=== PATIENT | male | born 1940 | race Caucasian/White ===

== ENCOUNTER 2016-02-17 08:59 | Outpatient (CLI) | payer MEDICARE ==
[~2016-02-17] VITALS: Ht 185.4 cm; Wt 107.7 kg
[~2016-02-17 08:59] MED LIST: AMBIEN10 MG PO; ATROVENT 0.02%2.5 ML UPD; AUGMENTIN 500-11 TA1 PO; BAYER CHEWABLE81 MG PO; BENADRYL25 MG PO; BENZONATATE200 MG PO; BETAPACE 120 M120 MG PO; BETAPACE 80 MG80 MG PO; BROVANA15 MCG/2 M INH; BUMEX 1 MG TAB1 MG PO; CARAFATE1 G/10 ML PO; CHRONULAC30 ML PO; CLARITIN 10 MG10 MG PO; COLACE100 MG PO; COREG12.5 MG PO; COREG25 MG PO; COUMADIN4 MG PO; COUMADIN5 MG PO; CRESTOR10 MG PO; Chloraseptic Spray [BKC] TOPICAL; DIOVAN HCT 320/1 TA2 PO; DIOVAN320 MG PO; DOCUSATE S50 MG/5 ML; ENTRESTO PO; FAMVIR500 MG PO; FLAGYL500 MG PO; FLORANEX / LACT1 TAB PO; FLUTICASONE PRO16 GM NASAL; FUROSEMIDE20 MG PO; HYDROCODONE-APA1 TAB PO; K-DUR20 MEQ PO; K-TAB10 MEQ PO; KLOR-CON 1010 MEQ PO; LASIX INJ40 MG/4 ML IV; LASIX20 MG PO; LASIX40 MG PO; LASIX80 MG PO; LEVAQUIN750 MG PO; LEVOXYL125 MCG PO; MAGNESIUM; MAGNESIUM OXID500 MG PO; METOPROLOL TART50 MG PO; MINOCIN100 MG PO; MIRALAX17 GM PO; MUCINEX DM ER1 EAC1 PO; NEURONTIN 300300 MG PO; NEXIUM40 MG PO; NYSTATIN ORAL SU5 ML PO; PEPCID20 MG PO; PERCOCET 10/3251 TA1 PO; PLAVIX75 MG PO; PROSCAR5 MG PO; PROSTATE MEDS; PROVENTIL HFA6.7 GM INH; PULMICORT0.5 MG/21 UPD; SINGULAIR10 MG PO; SOLU-MEDRO40 MG/1 M1 IV; SPIRIVA18 MCG INH; STOOL SOFTENER250 MG PO; SYMBICORT 16010.2 GM INH; SYNTHROID125 MCG PO; XANAX1 MG PO; XOPENEX 1.1.25 MG/3 UPD; ZANTAC300 MG PO
[2016-02-17 10:37] VITALS: BP 86/53; Ht 185.4 cm; Wt 107.7 kg
--- NOTE | 2016-02-17 10:44 | NUR ---
0930 ARRIVED FOR DOBUTREX AND BUMEX DRIP. RESP EVEN AND NONLABORED. V/S TAKEN EXPLAINED REASON OF DRIPS AND HAS OWN HOME MEDS TO TAKE. ALSO EXPLAINED HAS TO MONITOR URINE OUTPUT AND VERBALLY UNDERSTANDS.
--- NOTE | 2016-02-17 10:46 | NUR ---
1020 ON TELEMETRY [place] HR 65. ON MONITOR. IV STARTED BY SOL ONEAL R.N. LEFT HAND 2 ATTEMPTS 22 GAUGE GOOD BLOOD RETURN. DOBUTREX GTT STRATED AT 5 MCG/KG/MIN AND BUMEX DRIP AT 1MG HR.REPORT TO SOCO SURESH R.N.
[2016-02-17 10:51] LABS: ANION GAP 13.2 mmol/L (8-16); CARBON DIOXIDE 28.6 mmol/L (21.0-32.0); CREATININE - SERUM 1.4 mg/dL (0.6-1.3); POTASSIUM - SERUM 3.8 mmol/L (3.5-5.1)
--- NOTE | 2016-02-17 11:09 | NUR ---
RECEIVED CARE. IN ISOLATION FOR FLU VIRUS. DOBUTREX DRIP AND BUMEX DRIP INFUSING ORDERED, NO SIGNS OF INFILTRATION. AT BEDSIDE. COUGH NOTED.
--- NOTE | 2016-02-17 12:30 | NUR ---
LUNCH SERVED. DENIES NEEDS.
--- NOTE | 2016-02-17 14:00 | NUR ---
HAS VOIDED CLEAR YELLOW URINE. RESPIRATIONS WITHOUT DISTRESS. VITAL SIGNS STABLE, SEE VITAL SIGN SHEET.
--- NOTE | 2016-02-17 15:57 | NUR ---
STATES FEELS BETTER. RESPIRATIONS WITHOUT DISTRESS.
--- NOTE | 2016-02-17 16:31 | NUR ---
ROOM CHECK. RESPIRATIONS WITHOUT DISTRESS. SMILING. AT BEDSIDE.
--- NOTE | 2016-02-17 18:20 | NUR ---
IV DRIPS TURNED OFF.
--- NOTE | 2016-02-17 19:01 | NUR ---
DISCHARGE INSTRUCTIONS GIVEN, VOICED UNDERSTANDING. IV DISCONTINUED INTACT. WEIGHT IS 237. GETTING DRESSED FOR DISCHARGE.
--- NOTE | 2016-02-17 19:12 | NUR ---
DISCHARGED HOME VIA WC
== END 2016-02-17 19:12 | disposition home or self-care (01) ==
LOC: D.OPS 08:59
PROVIDERS: Internal Medicine Interventional Cardiology
DX: I50.9 Heart failure, unspecified (principal); I42.9 Cardiomyopathy, unspecified

== ENCOUNTER → 2016-02-23 12:05 | Outpatient (CLI) | payer MEDICARE ==
[2016-02-17 10:37] VITALS: BMI 31.8
[2016-02-23 13:58] LABS: ERYTHROCYTE SEDIMENTATION RATE 11 mm/hr (0-20)
[2016-02-24 11:19] LABS: ANA REFLEX - DIRECT Negative (Negative)
== END | disposition home or self-care (01) ==
LOC: D.LAB 09:30
PROVIDERS: Internal Medicine Pulmonary Disease
DX: J44.9 Chronic obstructive pulmonary disease, unspecified (principal)

== ENCOUNTER 2016-03-31 08:43 | Outpatient (CLI) | payer MEDICARE ==
[~2016-03-31] VITALS: Ht 185.4 cm; Wt 114.5 kg
[2016-03-31 10:15] LABS: CREATINE KINASE 46 UL (21-232); UREA NITROGEN 16 mg/dL (7-18)
[2016-03-31 10:43] LABS: ANION GAP 15.4 mmol/L (8-16); CARBON DIOXIDE 26.4 mmol/L (21.0-32.0); CREATININE - SERUM 1.2 mg/dL (0.6-1.3); POTASSIUM - SERUM 3.8 mmol/L (3.5-5.1)
[2016-03-31 10:51] VITALS: BP 84/48; Ht 185.4 cm; Wt 114.5 kg
--- NOTE | 2016-03-31 10:55 | NUR ---
0950-STARTED PERIPHERAL IV TO LEFT HAND TIMES TWO ATTEMPTS WITH 22G CATHETER. INFUSIONS PER PUMP AND SETTINGS INITIATED AT THIS TIME. 1055-REPORTED OFF TO HANNAH BENITEZ RN, TRANSFER OF CARE AT THIS TIME.
--- NOTE | 2016-03-31 18:47 | NUR ---
1200, RECEIVED PT, IV INFUSING , TELEMETRY ON , UP TO BAHROOM TOLERATED DIET 1500 NO CHANGE FAMILY AT BEDSIDE 1755 IV FINISH, IV DC WITH CATHER TIP INTACT TOTAL OUT PUT 4200CC, WT POST INFUSION 242.[address] BERG PAGE PER ORDER WAITING GUEST SPECIALIST BACK
== END 2016-03-31 19:21 | disposition home or self-care (01) ==
LOC: D.OPS 08:43
PROVIDERS: Internal Medicine Interventional Cardiology
DX: I50.9 Heart failure, unspecified (principal); I42.9 Cardiomyopathy, unspecified

== ENCOUNTER 2016-05-23 07:03 | Outpatient (CLI) | payer MEDICARE ==
[~2016-05-23] VITALS: Ht 185.4 cm; Wt 113.7 kg
[2016-05-23 07:36] VITALS: BP 132/71; Ht 185.4 cm; Wt 113.7 kg
[2016-05-23] MEDS ORDERED: K-TAB10 MEQ PO ×2 (07:44)
[2016-05-23] MEDS ORDERED: FUROSEMIDE20 MG PO (07:47)
[2016-05-23] MEDS ORDERED: NEXIUM40 MG PO (07:48)
[2016-05-23] MEDS ORDERED: ZANTAC150 MG PO (07:49)
[2016-05-23] MEDS ORDERED: PROSCAR5 MG PO (07:50)
[2016-05-23] MEDS ORDERED: SINGULAIR10 MG PO (07:51)
[2016-05-23] MEDS ORDERED: MINOCIN100 MG PO (07:52)
[2016-05-23] MEDS ORDERED: KLONOPIN1 MG PO (07:54)
[2016-05-23] MEDS ORDERED: COUMADIN5 MG PO (07:55)
[2016-05-23 08:16] LABS: POTASSIUM - SERUM 3.4 mmol/L (3.5-5.1)
[2016-05-23 08:25] LABS: ANION GAP 11.1 mmol/L (8-16); CARBON DIOXIDE 30.3 mmol/L (21.0-32.0); CREATININE - SERUM 1.2 mg/dL (0.6-1.3)
--- NOTE | 2016-05-23 09:38 | NUR ---
0939 RECEIVED PATIENT FROM SABINA NORTON RN. PATIENT RESTING, SITTING UP IN BED. ROOM AIR WITH NO RESP DISTRESS. NSR RATE 68 W NO C/O CHEST PAIN. PULSES PALP X 4. PIV TO R HAND WITH DOBUTREX AND BUMEX GTT INFUSING ORDERED. AT BEDSIDE.
--- NOTE | 2016-05-23 15:01 | NUR ---
1030 GTT CONTINUES, ALL VITALS REMAIN WNL. PIV TO R HAND REMAINS C/D/I. VOIDING VIA URINAL. AT SIDE. 1115 SITTING UP AT BEDSIDE EATING TURKEY SANDWICH, DENIES NEEDS AT THIS TIME. 1330 RESTING WITH EYES CLOSED. ALL VITALS WNL 1500 CONTINUES TO VOID VIA URINAL. ALL VITALS WNL. AT SIDE.
--- NOTE | 2016-05-23 16:17 | NUR ---
1600 PIV REMOVED FROM LEFT HAND WITH PAPER TAPE APPLIED. UP TO BEDSIDE TO VOID. WEIGHED AT BEDSIDE SCALES 242.8LBS. D/C INSTRUCTIONS DISCUSSED WITH PATIENT AND AT BEDSIDE.
--- NOTE | 2016-05-23 16:22 | NUR ---
3800 CC URINE VOIDED VIA URINAL FOR TOTAL DAY.
== END 2016-05-23 16:25 | disposition home or self-care (01) ==
LOC: D.CATH 07:03
PROVIDERS: Internal Medicine Interventional Cardiology
DX: I50.9 Heart failure, unspecified (principal); I42.9 Cardiomyopathy, unspecified

== ENCOUNTER → 2016-08-21 09:22 | Outpatient (CLI) | payer MEDICARE ==
[2016-05-23 07:36] VITALS: BMI 33.0
[~2016-08-21 09:22] MED LIST changes: +KLONOPIN1 MG PO; +ZANTAC150 MG PO
== END | disposition home or self-care (01) ==
LOC: D.RT 09:22
DX: J44.9 Chronic obstructive pulmonary disease, unspecified (principal)

== ENCOUNTER → 2016-10-24 06:53 | Outpatient (CLI) | payer MEDICARE ==
--- NOTE | ~2016-10-24 | HEMODYNAMI ---
PATIENT:HOME SANTORO MEDICAL RECORD: [id number] : 42 LOCATION:[facility] ADMISSION DATE: 10/24/16 Generatedon:10/24/201612:46 Patient name: HOME SANTORO Patient #: [id number] SSN: : 1940 Date of study: 10/24/2016 Page: Of Hemodynamic Procedure Report Patient Data Patient Demographics Procedure consent was obtained First Name: HOME Gender: Male Last Name: MAUDE : 1940 [facility] Initial: STARLA Age: 75 year(s) Patient #: [id number] Race: Unknown Additional ID: [id number] Contact details Address: [address] State: [place] City: [place] Zip code: [address] Past Medical History Allergies: No known allergies Admission Admission Data Admission Date: 10/24/2016 Admission Time: 6:53 Lab Results Lab Result Date: 10/24/2016 Lab Result Time: 0:00 Biochemistry Name Units Result Min Max BUN mg/dl 21 --(----)-* 7 18 Creatinine mg/dl 1.2 --(---*)-- 0.6 1.3 CBC Name Units Result Min Max Hemoglobin g/dl 15.9 --(--*-)-- 13.5 17.5 Procedure Procedure Types Cath Procedure Diagnostic Procedure LHC LHC w/Coronaries w/Grafts PCI Procedure SVG-BMS/JELENA Initial Miscellaneous Procedures Moderate Sedation up to 45 minutes Procedure Description Procedure Date Procedure Date: 10/24/2016 Procedure Start Time: 12:14 Procedure End Time: 12:42 Procedure Staff Name Function Eladio Doran MD Performing Physician Janey Braswell RN Nurse Mingo Hoffman RN Atomic Process Engineer Rozina Adam RT Atomic Process Engineer Kamini Gallegos RT Scrub Procedure Data Cath Procedure Fluoroscopy Diagnostic fluoroscopy Total fluoroscopy Time: 7.9 time: 7.9 min min Diagnostic fluoroscopy Total fluoroscopy dose: dose: 1261 mGy 1261 mGy Contrast Material Contrast Material Type Amount (ml) Isovue 300 117 Entry Location Entry Primary Successful Side Size Upsize Upsize Entry Closure Succes sful Closure Location (Fr) 1 (Fr) 2 (Fr) Remarks Device Remarks Femoral Right 5 Fr 6 Fr Exoseal artery Short Estimated blood loss: 5 ml Diagnostic catheters Device Type Used For End Catheter Placement Cordis 5Fr JL 4.0 Left Coronary Catheter (MP) Angiography Cordis 5Fr 3DRC Catheter Right Coronary (MP) Angiography Diagnostic Infinity 5Fr Multi-vessel AR 2 MOD catheter Angiography Procedure Complications No complications Procedure Medications Medication Administration Route Dosage Oxygen NC 2 l/min Lidocaine 2% added to field 20 Heparin Flush Bag added to field 2 bags (1000units/500ml NS) 0.9% NaCl I.V. 100 ml/hr Bumex 10 Dobutamine I.V. drip 5 mcg/kg/min (500mg/250ml D5W) Fentanyl I.V. 50 mcg Versed I.V. 1 mg Versed I.V. 1 mg Fentanyl I.V. 50 mcg Versed I.V. 1 mg Fentanyl I.V. 50 mcg Heparin Bolus I.V. 4000 units Integrilin (Bolus I.V. 10.2 ml 2mg/ml) Nitroglycerin IC/IA I.C. 100 mcg Nitroglycerin IC/IA I.C. 100 mcg Cardene I.C. 300 mcg Nitroglycerin IC/IA I.C. 100 mcg Plavix P.O. 600 mg Hemodynamics Rest HGB: 15.9 (g/dl) Heart Rate: 66 (bpm) Snapshots Pre Cath Intra NCS Post Cath Vital Signs Time Heart Resp SPO2 NIBP (mmHg) Rhythm Pain Sedation Rate (ipm) (%) Status Level (bpm) 11:50:31 65 21 96 127/80(99) NSR 0 (11) 10(A) , No pain 11:54:45 68 22 98 136/79(110) NSR 0 (11) 10(A) , No pain 11:59:01 67 19 100 135/83(117) NSR 0 (11) 10(A) , No pain 12:03:15 68 16 97 121/78(100) NSR 0 (11) 10(A) , No pain 12:07:25 61 15 98 109/75(97) NSR 0 (11) 10(A) , No pain 12:11:32 65 16 98 113/74(91) NSR 0 (11) 10(A) , No pain 12:15:43 68 15 98 106/75(82) NSR 0 (11) 9(A) , No pain 12:19:52 65 17 97 102/66(80) NSR 0 (11) 9(A) , No pain 12:24:00 68 16 97 104/65(81) NSR 0 (11) 9(A) , No pain 12:28:08 66 14 96 104/69(77) NSR 0 (11) 9(A) , No pain 12:32:14 68 16 97 84/55(72) NSR 0 (11) 9(A) , No pain 12:36:15 68 15 96 93/65(77) NSR 0 (11) 9(A) , No pain 12:40:21 65 16 96 103/60(81) NSR 0 (11) 10(A) , No pain Medications Time Medication Route Dose Verified Delivered Reason Notes Effectiveness by by 11:59:42 Oxygen NC 2 l/min Eladio Buffie used for Andreea Braswell RN procedure 11:59:50 Lidocaine 2% added 20ml vial Eladio Hendricks for local to Andreea Doran MD anesthetic field 11:59:56 Heparin Flush added 2 bags Eladio Hendricks used for Bag to Andreea Doran MD procedure (1000units/500ml field NS) 12:00:06 0.9% NaCl I.V. 100 ml/hr Eladio Buffie Per physic charbel Andreea Braswell RN 12:08:51 Bumex IVPB 10mg/100ml@1mg/hr Eladio Buffie Per physic charbel continued Andreea Braswell RN 12:09:03 Dobutamine I.V. 5 mcg/kg/min Eladio Buffie Per physic charbel continued (500mg/250ml drip Andreea Braswell RN D5W) 12:11:20 Fentanyl I.V. 50 mcg Eladio Sifuentesie for sedati on Andreea Braswell RN 12:11:28 Versed I.V. 1 mg Eladio Sifuentesie for sedati on Andreea Braswell RN 12:15:29 Versed I.V. 1 mg Eladio Buffie for sedati on Andreea Braswell RN 12:15:33 Fentanyl I.V. 50 mcg Eladio Toth for sedati on Andreea Braswell RN 12:20:58 Versed I.V. 1 mg Eladio Sifuentesie for sedati on Andreea Braswell RN 12:21:01 Fentanyl I.V. 50 mcg Eladio Toth for sedati on Andreea Braswell RN 12:23:03 Heparin Bolus I.V. 4000 units Eladio Toth for verified Andreea Braswell RN anticoagulation with dr doran 12:24:20 Integrilin I.V. 10.2 ml Eladio Toth for wasted (Bolus 2mg/ml) Andreea Braswell RN antiplatelet 9.8 ml of therapy vial 12:27:47 Nitroglycerin I.C. 100 mcg Eladio Hendricks for IC/IA Andreea Doran MD vasodilation 12:29:23 Cardene I.C. 300 mcg Eladio Hendricks for Andreea Doran MD vasodilation 12:30:51 Nitroglycerin I.C. 100 mcg Eladio Hendricks for IC/IA Andreea Doran MD vasodilation 12:31:52 Nitroglycerin I.C. 100 mcg Eladio Hendricks for IC/IA Andreea Doran MD vasodilation 12:40:14 Plavix P.O. 600 mg Eladio Toth for Andreea Braswell RN antiplatelet therapy Procedure Log Time Note 11:35:25 Mingo Hoffman RN sent for patient. Start room use. 11:35:26 Time tracking: Regular hours 11:35:30 Plan of Care:Hemodynamics will remain stable., Cardiac rhythm will remain stable., Comfort level will be maintained., Respiratory function will remain adequate., Patient/ family verbilizes understanding of procedure., Procedure tolerated without complication., Recovers from procedure without complications.. 11:43:44 Patient received from Pre/Post Procedure Room to CCL 2 Alert and oriented. Tansferred to table in Supine position. 11:43:47 Warm blankets applied, and evelio hugger turned on for patient comfort. 11:43:48 Correct patient and procedure confirmed by team. 11:43:49 Signed procedure consent form obtained from patient. 11:43:49 ECG and BP/O2 sat monitors applied to patient. 11:43:50 Full Disclosure recording started 11:49:26 Vital chart was started 11:49:59 Kamini Counts RT(R) was relieved by Rozina Adam RT(R) as monitoring person 11:50:24 Baseline sample Acquired. 11:50:33 H&P Date Dictated: 10/24/2016 New H&P dictated by physician.. 11:50:34 Pre-procedure instructions explained to patient. 11:50:34 Pre-op teaching completed and patient verbalized understanding. 11:50:36 Family in waiting room. 11:50:37 Patient NPO since Midnight. 11:52:56 Is the patient allergic to Iodine/contrast media? No. 11:52:59 Was the patient premedicated? No 11:55:02 Is patient on blood thinner?No 11:55:19 Patient diabetic? No. 11:55:22 Previous problem with sedation/anesthesia? No ? 11:55:24 Snore? Yes 11:55:25 Sleep apnea? No 11:55:25 Deviated septum? No 11:55:26 Opens mouth fully? Yes 11:55:27 Sticks out tongue? Yes 11:55:28 Airway obstruction? Yes copd 11:55:32 Dentures? Yes out 11:56:06 Pre procedure: right dorsailis pedis pulse 2+ Normal; easily identifiable; not easily obliterated 11:56:08 Pre procedure: left dorsailis pedis pulse 2+ Normal; easily identifiable; not easily obliterated 11:56:10 Patient pain scale 0/10 ?. 11:56:20 IV patent on arrival in right forearm with 0.9% NaCl at O. 11:56:47 Lab Result : BUN 21 mg/dl 11:56:47 Lab Result : Creatinine 1.2 mg/dl 11:56:47 Lab Result : Hemoglobin 15.9 g/dl 11:56:50 Lab results completed and on chart. 11:56:53 Right groin area was prepped with chlora-prep and draped in sterile fashion 11:56:54 Alarms reviewed by R. N. 11:56:54 Sharps counted by scrub and verified by R.N. 11:57:05 Use device set Femoral Dx 11:57:06 Acist Syringe opened to sterile field. 11:57:06 Bag Decanter opened to sterile field. 11:57:07 Medline Cath Pack opened to sterile field. 11:57:07 Terumo 5Fr [place] Sheath opened to sterile field. 11:57:08 [place] 260cm J .035 wire opened to sterile field. 11:57:09 Acist Hand Control opened to sterile field. 11:57:09 Acist Manifold opened to sterile field. 11:57:09 Diagnostic Infinity 5Fr Multipack catheter opened to sterile field. 11:57:10 Tegaderm 4 x 4 opened to sterile field. 11:59:42 Oxygen 2 l/min NC was administered by Janey Braswell RN; used for procedure; 11:59:50 Lidocaine 2% 20ml vial added to field was administered by Eladio Doran MD; for local anesthetic; 11:59:56 Heparin Flush Bag (1000units/500ml NS) 2 bags added to field was administered by Eladio Doran MD; used for procedure; 12:00:06 0.9% NaCl 100 ml/hr I.V. was administered by Janey Braswell RN; Per physician; 12:01:47 Zero performed for pressure channel P1 12:02:36 Physician paged 12:08:51 Bumex 10mg/100ml@1mg/hr IVPB was administered by Janey Braswell RN; Per physician; continued 12:09:03 Dobutamine (500mg/250ml D5W) 5 mcg/kg/min I.V. drip was administered by Janey Braswell RN; Per physician; continued 12:10:46 Physician arrived 12:10:47 --------ALL STOP TIME OUT------ 12:10:47 Final Timeout: patient, procedure, and site verified with staff and physician. All members of the team are in agreement. 12:10:49 Right groin site verified by team. 12:10:52 Physical assessment completed. ASA score P 2 - A patient with mild systemic disease as per Eladio Doran MD. 12:10:55 Sedation plan: IV Moderate Sedation Versed, Fentanyl 12:11:12 Procedure started. 12:11:20 Fentanyl 50 mcg I.V. was administered by Janey Braswell RN; for sedation; 12:11:28 Versed 1 mg I.V. was administered by Janey Braswell RN; for sedation; 12:14:17 Local anesthetic to right femoral artery with Lidocaine 2% by Eladio Doran MD.INITIAL ACCESS ONLY 12:14:24 A 5 Fr sheath was inserted into the Right Femoral artery 12:15:29 Versed 1 mg I.V. was administered by Janey Braswell RN; for sedation; 12:15:33 Fentanyl 50 mcg I.V. was administered by Janey Braswell RN; for sedation; 12:16:39 A Cordis 5Fr JL 4.0 Catheter (MP) was advanced over the wire and used for Left Coronary Angiography. 12:17:15 LCA angiography performed. 12:17:19 Injector settings: Ml/sec: 3, Volume: 6, 12:17:46 Catheter removed. 12:17:53 A Cordis 5Fr 3DRC Catheter (MP) was advanced over the wire and used for Right Coronary Angiography. 12:19:06 EASTMAN angiography performed. 12:19:11 Injector settings: Ml/sec: 3, Volume: 6, 12:19:37 PhotoFix UKisper J 300cm 0.014 guide wire opened to sterile field. 12:19:37 Merit BasixCompak Inflation Kit opened to sterile field. 12:19:38 Terumo 6Fr [place] Sheath opened to sterile field. 12:20:00 A Diagnostic Infinity 5Fr AR 2 MOD catheter was advanced over the wire and used for Multi-vessel Angiography. 12:20:44 SVG to RCA angiography performed. 12:20:58 Versed 1 mg I.V. was administered by Janey Braswell RN; for sedation; 12:21:01 Fentanyl 50 mcg I.V. was administered by Janye Braswell RN; for sedation; 12:21:37 Catheter removed. 12:21:38 Proceeding to intervention. 12:21:45 Sheath upsized to a 6 Fr Short. 12:23:03 Heparin Bolus 4000 units I.V. was administered by Janey Braswell RN; for anticoagulation; verified with dr doran 12:23:07 Universal Roboticstronic Launcher 6Fr MB 1 SH guide catheter opened to sterile field. 12:23:18 6 Fr mb 1 guide catheter was inserted over the wire 12:23:22 whisper wire advanced. 12:23:24 Wire advanced across lesion. 12:24:20 Integrilin (Bolus 2mg/ml) 10.2 ml I.V. was administered by Janey Braswell RN; for antiplatelet therapy; wasted 9.8 ml of vial 12::28 Inflation Number: 1 A Maxime OTW 3.5 x 18 stent was prepped and advanced across the Aorta Right -> Mid RCA. The stent was deployed at 17 ЕЛЕНА for 0:10 (min:sec). 12:27:08 Inflation Number: 2 A Maxime OTW 3.5 x 15 stent was prepped and advanced across the Aorta Right -> Mid RCA. The stent was deployed at 17 ЕЛЕНА for 0:10 (min:sec). 12::27 Inflation number: 3 The stent balloon was then re-inflated across the Aorta Right -> Mid RCA to 21 ЕЛЕНА for 0:10 (min:sec). 12:27:47 Nitroglycerin IC/IA 100 mcg I.C. was administered by Eladio Doran MD; for vasodilation; 12:27:50 Inflation number: 4 The stent balloon was then re-inflated across the Aorta Right -> Mid RCA to 21 ЕЛЕНА for 0:10 (min:sec). 12:29:23 Cardene 300 mcg I.C. was administered by Eladio Doran MD; for vasodilation; 12:30:51 Nitroglycerin IC/IA 100 mcg I.C. was administered by Eladio Doran MD; for vasodilation; 12:31:52 Nitroglycerin IC/IA 100 mcg I.C. was administered by Eladio Doran MD; for vasodilation; 12:33:51 Quick Combo opened to sterile field. 12:33:56 Quick combo pads placed on patients chest and back. 12:33:58 Defibrillator synced and charged to 200 Joules. 12:35:13 Stent catheter was removed intact over wire. 12:35:15 Wire removed. 12:35:15 Guide catheter removed. 12:35:26 Cordis 6Fr Exoseal opened to sterile field. 12:36:25 Sheath removed intact; hemostasis achieved with Exoseal to the Right Femoral artery. 12:36:27 Procedure ended.(Physican Out) 12:37:01 Fluoroscopy time 07.90 minutes. 12:37:17 Flurop Dose total: 1261 12:37:17 Fluoroscopy dose: 1261 mGy 12:37:55 Contrast amount:Isovue 300 117ml. 12:40:07 Sharps counted by scrub and verified by R.N. 12:40:09 Insertion/operative site no bleeding no hematoma. 12:40:12 Post-op/insertion site Right Femoral artery dressed using a 4 x 4 and Tegaderm. 12:40:14 Plavix 600 mg P.O. was administered by Janey Braswell RN; for antiplatelet therapy; 12:40:14 Post right femoral artery:stable 12:40:20 Post Procedure Pulses reassessed and unchanged 12:40:22 Post procedure rhythm: unchanged. 12:40:26 Estimated blood loss: 5 ml 12:40:28 Post procedure instruction explained to patient.Patient verbalizes understanding. 12:40:28 Patient needs reinforcement of post procedure teaching. 12:41:21 Procedure type changed to Cath procedure, Diagnostic procedure, LHC, LHC w/Coronaries w/Grafts, PCI procedure, SVG-BMS/JELENA Initial, Miscellaneous Procedures, Moderate Sedation up to 45 minutes 12:41:22 Procedure and supply charges have been captured, reviewed, submitted and are correct. 12:41:27 Procedure Complication : No complications 12:41:29 Vital chart was stopped 12:41:31 See physician's report for complete and final results. 12:41:56 Report given to Pre/Post Procedure Room. 12:41:59 Patient transfered to Pre/Post Procedure Room with Stretcher. 12:42:02 Procedure ended. 12:42:02 Full Disclosure recording stopped 12:42:08 ACC-PCI Only Patient was given prescriptions, or instructed by Eladio Doran MD to start/continue the following medications upon discharge: Plavix 12:42:10 End room use (Document Last) Intervention Summary Intervention Notes Time ActionType Lesion and Equipment Action# Pressure Duration Attributes Used 12:25:28 Place stent Aorta Right Maxime OTW 1 17 00:10 -> Mid RCA 3.5 x 18 stent 12:27:08 Place stent Aorta Right Maxime OTW 2 17 00:10 -> Mid RCA 3.5 x 15 stent 12:27:27 Reinflate Aorta Right Maxime OTW 3 21 00:10 stent -> Mid RCA 3.5 x 15 balloon stent 12:27:50 Reinflate Aorta Right Maxime OTW 4 21 00:10 stent -> Mid RCA 3.5 x 15 balloon stent Device Usage Item Name Manufacture Quantity Catalog Hospital Part Current Minim al Lot# / Number Charge Number Stock Stock Serial# Code Acist Acist 1 43047 871634 978039 307282 20 CFX BATTERY Inc Bag Microtek 1 883705 75457 841712 5 Decanter [employer] Inc. Medline Cardinal 1 [id number] 825885 48887 268126 5 Cath Pack Health Terumo 5Fr Terumo 1 [id number] 279586 442996 728232 [address] [place] [address] Bassam 1 822915 318314 878035 649121 30 260cm J .035 wire Acist Hand Acist 1 11947 091794 897119 579092 5 Informed [employer] Inc Acist Acist 1 36561 487033 221403 670303 5 Surefire [employer] Systems Inc Diagnostic Cardinal 1 [id number] 447607 47020 916918 30 Infinity Health 5Fr Multipack catheter Tegaderm 4 3M 1 [id number] 218715 946477 760964 5 x 4 Cordis 5Fr Cardinal 1 [id number] 5 JL 4.0 Health Catheter (MP) Cordis 5Fr Cardinal 1 464834 5 3DRC Health Catheter (MP) Dudley Dudley 1 [id number] 763759 661949 049954 5 Whisper J Vascular 300cm 0.014 guide wire Merit Merit 1 [id number] 524720 336728 390155 15 LightUp Medical Inflation Kit Terumo 6Fr Terumo 1 [id number] 028681 939640 906011 40 [place] Sheath Diagnostic Cardinal 1 [id number] 932461 556742 485735 20 Infinity Health 5Fr AR 2 MOD catheter Medtronic Medtronic 1 [id number] 632492 51689 801669 1 Launcher 6Fr MB 1 SH guide catheter Bostwick OTW Medtronic 1 [id number] 664727 1196536 025179 5 [id number] 3.5 x 18 stent Maxime OTW Medtronic 1 [id number] 500578 2924975 460226 5 [id number] 3.5 x 15 stent Quick Combo [employer] Systems 1 [id number] 882886 559515 169049 5 Cordis 6Fr Cardinal 1 EX600 977463 395150 203024 10 [facility] Signature Audit [place] Stage Time Signature Unsigned Intra-Procedure 10/24/2016 Rozina Adam 12:46:41 PM RT(R) [facility] [address] [place] [address]
[~2016-10-24 06:53] MED LIST changes: +FUROSEMIDE40 MG PO
--- NOTE | 2016-10-24 08:00 | NUR ---
0800 SALINE LOCK STARTED RIGHT HAND X 1 ATTEMPT WITH 20G IV CATH, PT CHEVY WELL
[2016-10-24 08:09] LABS: BASOPHILS 0.2 % (0-2); EOSINOPHILS 2.2 % (0-7); HEMATOCRIT 47.8 % (42.0-54.0); HEMOGLOBIN 15.9 g/dL (13.5-17.5); IMMATURE GRANULOCYTES 0.3 % (0-5); LYMPHOCYTES 27.3 % (15-50); MCH 32.6 pg (26.0-34.0); MCHC 33.3 g/dL (31.0-37.0); MCV 98.2 fL (80.0-100.0); MEAN PLATELET VOLUME 12.2 fL (7.4-10.4); MONOCYTES 10.5 % (2-11); NEUTROPHILS 59.5 % (40-80); PLATELET COUNT 130 10x3/uL (130-400); RBC 4.87 10x6/uL (4.20-6.10); RDW 13.4 % (11.5-14.5)
[2016-10-24 08:12] VITALS: BP 122/68; BMI 32.4
[2016-10-24 08:21] LABS: INR 1.26 (0.85-1.17); PROTIME 15.6 SECONDS (11.6-15.0)
[2016-10-24 08:30] LABS: ALBUMIN 3.9 g/dL (3.4-5.0); BILIRUBIN - DIRECT 0.18 mg/dL (0.00-0.30); BILIRUBIN - INDIRECT 0.52 mg/dL (0.00-1.00); BILIRUBIN - TOTAL 0.7 mg/dL (0.2-1.3); CHOL - HDL RATIO 5.3 ratio (2.3-4.9); LDL-HDL RATIO 2.9 ratio (1.5-3.5); PROTEIN - SERUM 7.2 g/dL (6.4-8.2)
[2016-10-24 08:33] LABS: ANION GAP 12.9 mmol/L (8-16); CALCIUM 8.9 mg/dL (8.5-10.1); CREATININE - SERUM 1.2 mg/dL (0.6-1.3); POTASSIUM - SERUM 3.9 mmol/L (3.5-5.1)
--- NOTE | 2016-10-24 08:59 | NUR ---
0845 DOBUTEREX AND BUMEX DRIPS STARTED VIA PUMP PER ORDERS. PRE INFUSION VS- BP 110/77, HR 65, SAT 96%. PT DENIES ANY C/O. AT BEDSIDE, CALL LIGHT IN REACH. URINALS X2 PROVIDED TO PATIENT. PRE INFUSION WEIGHT IS 245.6 LBS ADMIT ASSESSMENT AND HISTORY UNDER CATH PROCEDURE ALSO SCHEDULED FOR THIS DATE.
--- NOTE | 2016-10-24 09:19 | NUR ---
0910 SALINE LOCK STARTED TO LEFT FOREARM FOR CATH PROCEDURE X 1 STICK WITH 20G IV CATH. PT CHEVY WELL.
--- NOTE | 2016-10-24 09:59 | NUR ---
0958 PT VOIDED 600 CC CLEAR YELLOW URINE VIA URINAL. DENIES ANY C/O AT THIS TIME. VSS, AT BEDSIDE, CALL LIGHT IN REACH.
--- NOTE | 2016-10-24 11:19 | NUR ---
1120 PT VOIDED 650 CC CLEAR YELLOW URINE USING URINAL.
--- NOTE | 2016-10-24 13:00 | NUR ---
1300 RECIEVED TO ROOM VIA STRETCHER FROM CARD PUNCHING MACHINE OPERATOR WITH REPORTS OF ONE STENT TO THE VEIN GRAFT OF RCA. 6 FR EXOSEAL R/GROIN WITH FEMSTOP IN PLACE CDI NO BLEEDING NO HEMATOMA NOTED. VSS WITH CHEST PAIN DENIED. DOBUTREX INFUSING ON PUMP AT 16.7 CC ORDERED AND BUMEX INFUSING ON PUMP AT 10 CC ORDERED TO L/ARM.
--- NOTE | 2016-10-24 13:18 | NUR ---
PATIENT VOIDS 700 CC URINE TO COLLECTION VSS WITH CHEST PAIN DENIED.
--- NOTE | 2016-10-24 13:41 | NUR ---
VSS WITH CHEST PAIN DENIED. FEMSTOP REMAINS TO R/GROIN CDI NO BLEEDING NO HEMATOMA NOTED. DOUBUTREX AND BUMEX CONTINUE TO INFUSE ORDERED
--- NOTE | 2016-10-24 13:57 | NUR ---
VSS WITH NO DISTRESS NOTED. FEMSTOP REMAINS TO R/GROIN CDI. WILL MONITOR
--- NOTE | 2016-10-24 14:14 | NUR ---
VOIDS 500 CC URINE TO COLLECTION
--- NOTE | 2016-10-24 14:24 | NUR ---
FEMSTOP REMOVED WITH DRESSING APPLIED. NO BLEEDING NO HEMATOMA NOTED. VSS WITH CHEST PAIN DENIED
--- NOTE | 2016-10-24 14:43 | NUR ---
R/GROIN CDI NO BLEEDING NO HEMATOMA NOTED. VSS CHEST PAIN DENIED
--- NOTE | 2016-10-24 14:57 | NUR ---
PATIENT RESTING QUIETLY WITH EYES CLOSED. BUMEX AND DOBUTREX CONTINUE TO INFUSE DIRECTED. 6 FR EXOSEAL R/GROIN CDI NO BLEEDING NO HEMATOMA NOTED
--- NOTE | 2016-10-24 15:44 | NUR ---
PATIENT CONTINUES TO SLEEP WITH NO DISTRESS NOTED. R/GROIN CDI NO BLEEDING NO HEMATOMA NOTED. AT BEDSIDE VSS
--- NOTE | 2016-10-24 16:39 | NUR ---
IV FLUIDS TURNED OFF WITH TOTAL OF 58 CC BUMEX INFUSED AND 130 CC DOBUTREX INFUSED. PATIENT VOIDS 750 CC URINE TO COLLECTION FOR TOTAL OF 3250 CC URINE OFF FROM START OF INFUSION. 6 FR EXOSEAL R/GROIN CDI NO BLEEDING NO HEMATOMA NOTED. PATIENT UP TO GET DRESSED
--- NOTE | 2016-10-24 16:56 | NUR ---
PATIENT WEIGHT OF 239 LBS OR 108.6 KG AFTER INFUSION. VERBAL AND WRITTEN DISCHARGE GONE OVER WITH PATIENT AND BOTH VERBALIZED UNDERSTANDING. CHEST PAIN IS DENIED. WITH 6 FR EXOSEAL R/GROIN CDI. LEFT VIA WC TO PARKING FOR TRANSPORT HOME
--- NOTE | 2016-12-01 16:56 | OP ---
PATIENT NAME: HOME SANTORO MEDICAL RECORD: [id number] :42 LOCATION:D.CAT ADMISSION DATE: SURGEON: DIMITRI ALBERT MD DATE OF OPERATION: 10/24/2016 PROCEDURES: 1. PTCA stent vein graft to RCA. 2. Left heart catheterization. 3. Selective coronary angiography. 4. Vein graft angiography. 5. EASTMAN angiography. INDICATION: Angina and coronary artery disease. PROCEDURE IN DETAIL: After informed consent was obtained and after detailed explanation of risks, benefits as well as alternative therapies, the patient elected to proceed with angiogram and angioplasty. The right femoral area was prepped and draped in normal sterile fashion. The right femoral artery was cannulated via modified Seldinger technique with placement of 6-Namibian sheath. All catheters exchanged through this sheath. FINDINGS: Left ventriculogram was not performed secondary to mechanical aortic valve. SELECTIVE CORONARY ANGIOGRAPHY: 1. Left main showed no significant angiographic disease. 2. Left anterior descending is totally occluded. 3. EASTMAN to the LAD is widely patent. Distal LAD is widely patent. 4. Left circumflex has moderate irregularities, but no flow-limiting stenosis. 5. Right coronary artery is totally occluded. 6. Vein graft to the right coronary artery is patent with 80% stenosis in the mid shaft. PTCA STENT OF THE RIGHT CORONARY ARTERY: The stent used is 3.5 x 18 mm and 3.5 x 15 mm, both Maxime stents. Result was 0% residual stenosis. OVERALL IMPRESSION: Successful percutaneous transluminal coronary angioplasty stent of the vein graft to the right coronary artery going from 80% initial stenosis to 0% residual. TRANSINT:[id number] Voice Confirmation ID: [id number] DOCUMENT ID: [id number] DIMITRI ALBERT MD at 1656 CC: [id number] DICTATION DATE: 11/16/16 1238 CLIENT LIAISON: 11/16/16 1253 [facility] CLI 10/24/[address] [address]
== END | disposition home or self-care (01) ==
LOC: D.CATH 06:53
PROVIDERS: Internal Medicine Interventional Cardiology
DX: I25.119 Atherosclerotic heart disease of native coronary artery with unspecified angina pectoris (principal); Z01.812 Encounter for preprocedural laboratory examination
CPT/HCPCS: 93459; C9604

== ENCOUNTER 2017-06-05 09:28 | Outpatient (CLI) | payer MEDICARE ==
[~2017-06-05] VITALS: Ht 185.4 cm; Wt 114.5 kg
[2017-06-05 10:18] VITALS: BP 114/73; Ht 185.4 cm; Wt 114.5 kg
[2017-06-05 10:29] LABS: INR 2.02 (0.85-1.17); PROTIME 22.2 SECONDS (11.6-15.0)
[2017-06-05 10:39] LABS: ANION GAP 12.2 mmol/L (8-16); CARBON DIOXIDE 27.9 mmol/L (21.0-32.0); POTASSIUM - SERUM 4.1 mmol/L (3.5-5.1)
== END 2017-06-05 19:09 | disposition home or self-care (01) ==
LOC: D.OPS 09:28
PROVIDERS: Internal Medicine Interventional Cardiology
DX: I50.9 Heart failure, unspecified (principal); I42.9 Cardiomyopathy, unspecified

== ENCOUNTER → 2017-06-13 12:37 | Outpatient (CLI) | payer MEDICARE ==
[2017-06-05 10:18] VITALS: BMI 33.3
== END | disposition home or self-care (01) ==
LOC: D.RT 12:37
DX: J44.9 Chronic obstructive pulmonary disease, unspecified (principal)

== ENCOUNTER 2017-07-13 09:20 | Outpatient (CLI) | payer MEDICARE ==
[~2017-07-13] VITALS: Ht 185.4 cm; Wt 117.3 kg
[2017-07-13 10:15] VITALS: BP 113/66; Ht 185.4 cm; Wt 117.3 kg
[2017-07-13 10:16] LABS: ANION GAP 9.8 mmol/L (8-16); CARBON DIOXIDE 30.9 mmol/L (21.0-32.0); CREATININE - SERUM 1.3 mg/dL (0.6-1.3); POTASSIUM - SERUM 3.7 mmol/L (3.5-5.1)
[2017-07-13 11:06] LABS: INR 2.31 (0.85-1.17); PROTIME 24.8 SECONDS (11.6-15.0)
== END 2017-07-13 20:24 | disposition home or self-care (01) ==
LOC: D.CATH 09:20
PROVIDERS: Internal Medicine Interventional Cardiology
DX: I50.9 Heart failure, unspecified (principal); I42.9 Cardiomyopathy, unspecified; Z01.812 Encounter for preprocedural laboratory examination

== ENCOUNTER → 2017-09-26 18:44 | Outpatient (CLI) | payer MEDICARE ==
[2017-07-13 10:15] VITALS: BMI 34.1
[~2017-09-26 18:44] MED LIST changes: +CARAFATE1 G PO; +ZOCOR80 MG PO
== END | disposition home or self-care (01) ==
LOC: D.LABREF 18:44
PROVIDERS: Internal Medicine Interventional Cardiology
DX: Z13.1 Encounter for screening for diabetes mellitus (principal); I25.10 Atherosclerotic heart disease of native coronary artery without angina pectoris

== ENCOUNTER 2017-10-09 14:11 | Inpatient (IN) | payer MEDICARE ==
[~2017-10-09] VITALS: Ht 185.4 cm; Wt 128.8 kg
--- NOTE | ~2017-10-09 | EC ---
PATIENT:HOME SANTORO DATE OF SERVICE: 10/10/17 SEX: M MEDICAL RECORD: [id number] DATE OF : 42 LOCATION:D.M2 D.211 AGE OF PATIENT: 76 ADMISSION DATE: 10/10/17 REFERRING PHYSICIAN: INTERPRETING PHYSICIAN: DMIITRI DORAN MD ECHOCARDIOGRAM REPORT ECHO CHARGES 4 ECHO COMPLETE Date: 10/10/17 CLINICAL DIAGNOSIS: CHF ECHOCARDIOGRAPHIC MEASUREMENTS (adult normal given) AC root (d.<3.7cm) 3.0 cm LV Septum d (<1.2 cm> 1.5 cm Valve Excursion 1.2 cm LV Septum (systole) 1.5 cm Left Atria (s.<4.0cm> 3.2 cm LVPW d(<1.2cm) 1.1 cm RV (d.<2.3cm) 2.9 cm LVPW (sytole) 1.6 cm LV diastole(<5.6CM) 6.0 cm MV E-F(>70mm/sec) cm LV systole 5.0 cm LVOT Diameter 1.9 cm MV exc.(>10mm) cm Est.ejection fraction (50-75%) % DOPPLER: LVIT cm/sec A 42 cm/sec E 72 cm/sec LA cm/sec RVSP 16.2 mmHg LVOT 77 cm/sec AOP1/2T m/s Asc. Ao 111 cm/sec RVOT 73 cm/sec RA cm/sec PA 74 cm/sec AV Gradient Peak 4.9 mmHg AV Mean 2.8 mmHg AV Area 1.6 cm MV Gradient Peak 9.0 mmHg MV Mean 3.8 mmHg MV Area cm COMMENTS: Molded Parts Inspector: [facility] Bilingual Secretary: 1 Dr. Doran TAPE# PACS Pericardial Effusion N DATE OF SERVICE: 10/11/2017 ECHOCARDIOGRAM FINDINGS: 1. Left ventricular chamber size is mildly dilated. Left ventricular systolic function is mildly reduced, overall ejection fraction 40% to 45%. 2. Left atrium is within normal limits at 3.8 cm. Right atrium and right ventricular chamber sizes are mildly dilated. 3. Valvular structure have normal structure and motion. ECHOCARDIOGRAM REPORT [id number] HOME SANTORO 4. Doppler interrogation reveals mild mitral regurgitation, mild tricuspid regurgitation, no other valvular insufficiency or stenosis. 5. Valvular structures: Aortic valve is replaced with a mechanical prosthesis with normal structure and function in its position. The remaining valvular structures have normal structure and motion. 6. Pulmonary systolic pressure is normal estimated 16 mmHg. No evidence of pericardial effusion or left ventricular thrombus. TRANSINT:[id number] Voice Confirmation ID: [id number] DOCUMENT ID: [id number] DIMITRI DORAN MD at 1950 CC: [id number] DICTATION DATE: 10/11/17 1621 GRANULATOR TENDER: 10/11/17 1726 DIS IN 10/12/17 [place] [id number] [place] [id number]
--- NOTE | ~2017-10-09 | DS ---
PATIENT:HOME SANTORO :42 MEDICAL RECORD: [id number] DISCHARGE SUMMARY ADMISSION DATE: 10/10/17 DISCHARGE DATE: 10/12/17 DIAGNOSES: 1. Heart failure, chronic systolic dysfunction. 2. Cardiomyopathy. 3. Coronary disease. 4. Sick sinus syndrome. 5. Status post pacemaker. 6. Hypertension. 7. Hyperlipidemia. Mr. Santoro presents with heart failure symptomatology. He was admitted, started on dobutamine and Bumex drips. He had good diuresis and had no further heart failure symptomatology. Discharged home with no change in his medications. TRANSINT:[id number] Voice Confirmation ID: [id number] DOCUMENT ID: [id number] DIMITRI ALBERT MD at 1950 CC: [id number] DICTATION DATE: 10/12/17 1225 PROTOTYPE SEWER: 10/12/17 1234 DIS IN 10/12/17 [place] [id number] [place] [address]
[~2017-10-09 14:11] MED LIST changes: -CARAFATE1 G PO; -ZOCOR80 MG PO
[2017-10-09 15:45] LABS: CALC OSMOLALITY 280 mosm/kg (275-300); CALCIUM 8.4 mg/dL (8.5-10.1); CARBON DIOXIDE 28.5 mmol/L (21.0-32.0); CHLORIDE - SERUM 104 mmol/L (98-107); CREATININE - SERUM 0.9 mg/dL (0.6-1.3); GLUCOSE 137 mg/dL (74-106); POTASSIUM - SERUM 4.1 mmol/L (3.5-5.1); SODIUM 140 mmol/L (136-145); UREA NITROGEN 13 mg/dL (7-18); eGFR NON AFRICAN AMERICAN 87 mL/min (90-120)
[2017-10-09 16:51] VITALS: BP 116/73; BMI 37.5
[2017-10-09 20:43] VITALS: BP 132/63
[2017-10-10 00:22] VITALS: BP 95/54
[2017-10-10] MEDS ORDERED: CARAFATE1 G PO ×2 (01:01→01:04)
[2017-10-10] MEDS ORDERED: LASIX40 MG PO (01:15)
[2017-10-10] MEDS ORDERED: MIRALAX17 GM PO (01:15)
[2017-10-10] MEDS ORDERED: ZOCOR80 MG PO (01:21)
[2017-10-10 05:24] VITALS: BP 114/63
[2017-10-10 06:06] LABS: CALCIUM 7.9 mg/dL (8.5-10.1)
[2017-10-10 06:10] LABS: ANION GAP 5.8 mmol/L (8-16); CARBON DIOXIDE 37.2 mmol/L (21.0-32.0); CREATININE - SERUM 1.2 mg/dL (0.6-1.3)
[2017-10-10 07:45] VITALS: BP 132/72
[2017-10-10 11:24] VITALS: BP 96/55
[2017-10-10 12:40] VITALS: Ht 185.4 cm; Wt 128.8 kg
[2017-10-10 15:38] VITALS: BP 103/58
[2017-10-10 20:43] VITALS: BP 106/58
[2017-10-11 06:33] VITALS: BP 89/50
[2017-10-11 07:53] LABS: ANION GAP 2.2 mmol/L (8-16); CALCIUM 8.5 mg/dL (8.5-10.1); CARBON DIOXIDE 32.6 mmol/L (21.0-32.0); POTASSIUM - SERUM 3.8 mmol/L (3.5-5.1)
[2017-10-11 07:54] LABS: CREATININE - SERUM 2.3 mg/dL (0.6-1.3)
[2017-10-11 07:59] VITALS: BP 80/51
[2017-10-11 10:19] LABS: BASOPHILS 0.1 % (0-2); EOSINOPHILS 0 % (0-7); HEMATOCRIT 47.8 % (42.0-54.0); HEMOGLOBIN 15.3 g/dL (13.5-17.5); IMMATURE GRANULOCYTES 0.2 % (0-5); LYMPHOCYTES 13.4 % (15-50); MCH 31.7 pg (26.0-34.0); MCV 99.2 fL (80.0-100.0); MEAN PLATELET VOLUME 12.1 fL (7.4-10.4); MONOCYTES 7.6 % (2-11); NEUTROPHILS 78.7 % (40-80); RBC 4.82 10x6/uL (4.20-6.10); RDW 14.6 % (11.5-14.5); WBC 10.5 10x3/uL (4.8-10.8)
[2017-10-11 10:22] LABS: PLATELET COUNT 170 10x3/uL (130-400)
[2017-10-11 10:23] LABS: INR 2.37 (0.85-1.17); PROTIME 25.2 SECONDS (11.6-15.0)
[2017-10-11 11:17] VITALS: BP 81/49
[2017-10-11 15:26] VITALS: BP 84/51
[2017-10-11 19:45] LABS: ANION GAP 10.6 mmol/L (8-16); CALCIUM 8.3 mg/dL (8.5-10.1); CARBON DIOXIDE 31.7 mmol/L (21.0-32.0); POTASSIUM - SERUM 4.3 mmol/L (3.5-5.1)
[2017-10-11 19:46] LABS: CREATININE - SERUM 2.9 mg/dL (0.6-1.3)
[2017-10-12 05:45] LABS: ANION GAP 7.7 mmol/L (8-16); CALCIUM 8.1 mg/dL (8.5-10.1); CARBON DIOXIDE 29.9 mmol/L (21.0-32.0); CREATININE - SERUM 2.3 mg/dL (0.6-1.3); POTASSIUM - SERUM 4.6 mmol/L (3.5-5.1)
[2017-10-12 06:23] VITALS: BP 98/58
[2017-10-12 07:54] VITALS: BP 89/56
[2017-10-12 11:04] VITALS: BP 112/61
== END 2017-10-12 14:31 | disposition home or self-care (01) | DRG 293 ==
LOC: D.M2 14:11 → OBSVTIME 14:12 → D.M2 10-10 11:56
PROVIDERS: Internal Medicine Interventional Cardiology
DX: I11.0 Hypertensive heart disease with heart failure (principal); I25.10 Atherosclerotic heart disease of native coronary artery without angina pectoris; I25.5 Ischemic cardiomyopathy; E78.5 Hyperlipidemia, unspecified; J44.9 Chronic obstructive pulmonary disease, unspecified; I48.0 Paroxysmal atrial fibrillation; N40.0 Benign prostatic hyperplasia without lower urinary tract symptoms; Z86.73 Personal history of transient ischemic attack (TIA), and cerebral infarction without residual deficits; I50.23 Acute on chronic systolic (congestive) heart failure

== ENCOUNTER 2017-11-28 16:33 | Observation (INO) | payer MEDICARE ==
[~2017-11-28] VITALS: Ht 185.4 cm; Wt 107.5 kg
--- NOTE | ~2017-11-28 | DS ---
PATIENT:HOME SANTORO :42 MEDICAL RECORD: [id number] DISCHARGE SUMMARY ADMISSION DATE: 11/30/17 DISCHARGE DATE: 11/30/17 DIAGNOSES: 1. Congestive heart failure, chronic systolic dysfunction. 2. Cardiomyopathy. 3. Coronary artery disease. 4. Previous percutaneous transluminal coronary angioplasty and stent. 5. Sick sinus syndrome. 6. Status post pacemaker. 7. Shortness breath. 8. Edema. HOSPITAL COURSE: Mr. Santoro presents with decompensated heart failure with shortness of breath and edema, found to be in fluid overload state, was admitted for IV Bumex and IV dobutamine therapy, had marked improvement with a 6-pound weight loss and improvement in symptomatology. Discharged home to continue his current medications, follow up with [facility] in 1 month. TRANSINT:[id number] Voice Confirmation ID: [id number] DOCUMENT ID: [id number] DIMITRI ALBERT MD at 1903 CC: [id number] DICTATION DATE: 11/30/17 1029 MATERIAL HANDLER FLOORPERSON: 11/30/178 DIS IN 11/30/17 [facility] [address] [place] [id number]
[~2017-11-28 16:33] MED LIST changes: +CARAFATE1 G PO; +ZOCOR80 MG PO
[2017-11-28 17:49] VITALS: BP 149/95
[2017-11-28 17:56] VITALS: BP 149/95; BMI 32.0
[2017-11-28 18:14] LABS: BASOPHILS 0.3 % (0-2); EOSINOPHILS 1.4 % (0-7); HEMATOCRIT 44.4 % (42.0-54.0); HEMOGLOBIN 14.6 g/dL (13.5-17.5); IMMATURE GRANULOCYTES 0.3 % (0-5); LYMPHOCYTES 22.3 % (15-50); MCH 32.1 pg (26.0-34.0); MCHC 32.9 g/dL (31.0-37.0); MCV 97.6 fL (80.0-100.0); MEAN PLATELET VOLUME 11.8 fL (7.4-10.4); MONOCYTES 7.3 % (2-11); NEUTROPHILS 68.4 % (40-80); RBC 4.55 10x6/uL (4.20-6.10); RDW 14.5 % (11.5-14.5); WBC 6.5 10x3/uL (4.8-10.8)
[2017-11-28 18:18] LABS: PLATELET COUNT 119 10x3/uL (130-400)
[2017-11-28 18:31] LABS: ANION GAP 12.8 mmol/L (8-16); CALCIUM 8.9 mg/dL (8.5-10.1); CARBON DIOXIDE 31.9 mmol/L (21.0-32.0); CREATININE - SERUM 1.1 mg/dL (0.6-1.3); POTASSIUM - SERUM 3.7 mmol/L (3.5-5.1)
[2017-11-28 20:00] VITALS: BP 127/60
[2017-11-29] VITALS: BP 126/54
[2017-11-29 04:00] VITALS: BP 130/60
[2017-11-29 07:48] VITALS: BP 85/50
[2017-11-29 10:57] VITALS: Ht 185.4 cm; Wt 107.5 kg
[2017-11-29 11:31] VITALS: BP 104/58
[2017-11-29 15:15] VITALS: BP 95/59
[2017-11-29 20:00] VITALS: BP 93/54
[2017-11-30] VITALS: BP 101/55
[2017-11-30 04:00] VITALS: BP 87/46
[2017-11-30 06:17] LABS: CALC OSMOLALITY 286 mosm/kg (275-300); CALCIUM 8.6 mg/dL (8.5-10.1); CHLORIDE - SERUM 103 mmol/L (98-107); GLUCOSE 117 mg/dL (74-106); SODIUM 143 mmol/L (136-145); UREA NITROGEN 16 mg/dL (7-18); eGFR NON AFRICAN AMERICAN 77 mL/min (90-120)
[2017-11-30 06:19] LABS: POTASSIUM - SERUM 2.7 mmol/L (3.5-5.1)
[2017-11-30 08:27] VITALS: BP 91/53
[2017-12-11] MEDS ORDERED: COUMADIN4 MG PO (07:21)
== END 2017-11-30 12:07 | disposition home or self-care (01) ==
LOC: OBSVTIME 16:33 → D.M2 16:33 → D.MS 11-29 15:15 → D.M2 11-30 07:31
PROVIDERS: Internal Medicine Interventional Cardiology
DX: I50.23 Acute on chronic systolic (congestive) heart failure (principal); I42.9 Cardiomyopathy, unspecified; I25.10 Atherosclerotic heart disease of native coronary artery without angina pectoris; Z95.0 Presence of cardiac pacemaker

== ENCOUNTER → 2017-12-11 06:48 | Outpatient (CLI) | payer MEDICARE ==
[~2017-12-11] VITALS: Ht 185.4 cm; Wt 116.4 kg
[2017-12-11 08:07] VITALS: BP 122/62; Ht 185.4 cm; Wt 116.4 kg
[2017-12-11 09:01] LABS: ANION GAP 10.1 mmol/L (8-16); CARBON DIOXIDE 31.8 mmol/L (21.0-32.0); CREATININE - SERUM 1.1 mg/dL (0.6-1.3); MAGNESIUM - SERUM 2.1 mg/dL (1.8-2.4); POTASSIUM - SERUM 3.9 mmol/L (3.5-5.1)
== END | disposition home or self-care (01) ==
LOC: D.CATH 06:48
PROVIDERS: Internal Medicine Interventional Cardiology
DX: I50.9 Heart failure, unspecified (principal); Z01.812 Encounter for preprocedural laboratory examination

== ENCOUNTER → 2018-01-31 14:39 | Outpatient (CLI) | payer MEDICARE ==
[2017-12-11 08:07] VITALS: BMI 33.8
== END | disposition home or self-care (01) ==
LOC: D.CT 14:39
DX: M79.671 Pain in right foot (principal)

== ENCOUNTER 2018-04-17 06:55 | Outpatient (CLI) | payer MEDICARE ==
[~2018-04-17] VITALS: Ht 185.4 cm; Wt 111.0 kg
[2018-04-17 07:50] VITALS: BP 113/67; Ht 185.4 cm; Wt 111.0 kg
[2018-04-17 08:14] LABS: BASOPHILS 0.3 % (0-2); EOSINOPHILS 1.5 % (0-7); HEMATOCRIT 45.2 % (42.0-54.0); HEMOGLOBIN 14.5 g/dL (13.5-17.5); IMMATURE GRANULOCYTES 0.3 % (0-5); LYMPHOCYTES 16.8 % (15-50); MCH 31.9 pg (26.0-34.0); MCHC 32.1 g/dL (31.0-37.0); MCV 99.6 fL (80.0-100.0); MEAN PLATELET VOLUME 12.9 fL (7.4-10.4); MONOCYTES 8.8 % (2-11); NEUTROPHILS 72.3 % (40-80); PLATELET COUNT 133 10x3/uL (130-400); RBC 4.54 10x6/uL (4.20-6.10); RDW 13.9 % (11.5-14.5); WBC 7.4 10x3/uL (4.8-10.8)
[2018-04-17 08:15] LABS: ANION GAP 10.7 mmol/L (8-16); CALCIUM 8.5 mg/dL (8.5-10.1); CARBON DIOXIDE 32.5 mmol/L (21.0-32.0); CREATININE - SERUM 1.2 mg/dL (0.6-1.3); POTASSIUM - SERUM 3.2 mmol/L (3.5-5.1)
--- NOTE | 2018-04-17 08:21 | NUR ---
0815 IV BUMEX AND DOBUTREX INFUSIONS STARTED VIA PUMP PER ORDERS TO IV SITE LEFT ARM. PT IS ALERT, DENIES ANY C/O. BP IS 104/54, HR IS 65. URINALS X2 AT BEDSIDE, CALL LIGHT IN REACH. DIET TRAY SERVED. LAB HAS BEEN DRAWN AND SENT TO LAB.
--- NOTE | 2018-04-17 08:59 | NUR ---
2GM NA+ AHA DIET TRAY SERVED. PT IS ALERT, DENIES ANY C/O AT THIS TIME. CARDIAC DRIPS INFUSING VIA PUMP PER ORDERS. NO FAMILY AT BEDSIDE, CALL LIGHT IN REACH.
--- NOTE | 2018-04-17 09:00 | NUR ---
BP 123/69, HR IS 65, DENIES ANY C/O.
--- NOTE | 2018-04-17 09:35 | NUR ---
DR ALBERT NOTIFIED OF POTASSIUM LEVEL OF 3.2. NEW ORDER RECEIVED FOR KCL 40 MEQ PO X1.
--- NOTE | 2018-04-17 10:08 | NUR ---
PT HAS RECEIVED PO POTASSIUM PER ORDERS. HAS CHEVY BREAKFAST TRAY WITH NO C/O NAUSEA. AT BEDSIDE, CALL LIGHT IN REACH. DENIES ANY C/O AT THIS TIME. PACED AT 65, BP IS 118/69.
--- NOTE | 2018-04-17 10:35 | NUR ---
PT HAS VOIDED 500 CC CLEAR YELLOW URINE, PACED AT 65, BP IS 113/62 DENIES ANY C/O, AT BEDSIDE, CALL LIGHT IN REACH.
--- NOTE | 2018-04-17 11:11 | NUR ---
PT DENIES NEEDS AT THIS TIME, PACED AT 65, BP IS 118/62. AT BEDSIDE, CALL LIGHT IN REACH.
--- NOTE | 2018-04-17 11:59 | NUR ---
PT HAS VOIDED ADDITIONAL 1300 CC URINE TO URINAL. DENIES NEEDS AT THIS TIME. AT BEDSIDE, CALL LIGHT IN REACH. PACED AT 66, BP IS 123/68.
--- NOTE | 2018-04-17 13:00 | NUR ---
OFFERED PT LUNCH TRAY AND PT DECLINES AT THIS TIME. CARDIAC MEDS INFUSING PER ORDERS VIA PUMP. PT DENIES NEEDS AT THIS TIME.
--- NOTE | 2018-04-17 13:37 | NUR ---
PT HAS VOIDED 700 CC URINE TO URINAL. DENIES NEEDS AT THIS TIME. VSS, AT BEDSIDE.
--- NOTE | 2018-04-17 14:43 | NUR ---
PT HAS VOIDED 700 CC URINE TO URINAL. VSS, DENIES ANY C/O. IS SITTING UP IN BED, WATCHING TV WITH AT BEDSIDE.
--- NOTE | 2018-04-17 15:33 | NUR ---
PT SITTING UP IN BED, WATCHING TV WITH AT BEDSIDE. DENIES NEEDS AT THIS TIME. VSS, CALL LIGHT IN REACH.
--- NOTE | 2018-04-17 16:13 | NUR ---
GTT STOPPED. 600CC URINE IN URINAL. VSS. NO NEEDS VOICED. WILL CONTINUE TO MONITOR.
--- NOTE | 2018-04-17 16:13 | NUR ---
GTT STOPPED. WILL MONITOR CLOSELY UNTIL DISCHARGE.
--- NOTE | 2018-04-17 16:13 | NUR ---
GTT STOPPED. VOIDED 600CC INTO URINAL. VSS. WILL MONITOR CLOSELY.
--- NOTE | 2018-04-17 16:35 | NUR ---
LEFT PIV D/C'D WITH CATHETER INTACT, BAND AID TO SITE. UP TO BEDSIDE TO GET DRESSED.
--- NOTE | 2018-04-17 16:49 | NUR ---
STARTING WEIGHT WAS 244.2 AND FINAL WEIGHT WAS 237.2. URINE OUTPUT WAS A TOTAL OF 4,000CC. DISCHARGE INSTRUCTIONS GIVEN TO PATIENT AND FAMILY. VERBALIZED UNDERSTANDING.
--- NOTE | 2018-04-17 16:55 | NUR ---
TAKEN OUT VIA WHEELCHAIR BY CATH RUN LEAD. LEFT FACILTIY WITH FAMILY AND ALL PERSONAL BELONGINGS.
== END 2018-04-17 16:55 | disposition home or self-care (01) ==
LOC: D.CATH 06:55
PROVIDERS: ATTEND Internal Medicine Interventional Cardiology
DX: I50.9 Heart failure, unspecified (principal); I42.9 Cardiomyopathy, unspecified

== ENCOUNTER → 2018-06-05 12:32 | Outpatient (CLI) | payer MEDICARE ==
[2018-04-17 07:50] VITALS: BMI 32.2
== END | disposition home or self-care (01) ==
LOC: D.RT 12:32
PROVIDERS: ATTEND Internal Medicine Pulmonary Disease
DX: J44.9 Chronic obstructive pulmonary disease, unspecified (principal)

== ENCOUNTER → 2018-07-04 14:21 | Outpatient (CLI) | payer MEDICARE | END | disposition home or self-care (01) | LOC: D.HCCARDIO 14:21 | DX: I50.9 Heart failure, unspecified (principal) ==

== ENCOUNTER 2018-09-23 06:52 | Outpatient (CLI) | payer MEDICARE ==
[~2018-09-23] VITALS: Ht 185.4 cm; Wt 106.4 kg
[2018-09-23] MEDS ORDERED: OMNICEF300 MG PO (07:30)
[2018-09-23 07:42] VITALS: BP 110/57; Ht 185.4 cm; Wt 106.4 kg
[2018-09-23 07:59] LABS: ANION GAP 10.9 mmol/L (8-16); CARBON DIOXIDE 31.6 mmol/L (21.0-32.0); CREATININE - SERUM 1.1 mg/dL (0.6-1.3); POTASSIUM - SERUM 3.5 mmol/L (3.5-5.1)
--- NOTE | 2018-09-23 08:30 | NUR ---
DOBUTAMINE AND BUMEX DRIPS STARTED PER ORDERS. BEGINNING WEIGHT OF 106.7KG. VSS. FAMILY AT BEDSIDE, WILL MONITOR CLOSELY.
--- NOTE | 2018-09-23 10:30 | NUR ---
RESTING QUIETLY WITH EYES CLOSED. VSS. DENIES ANY NEEDS. WILL CONTINUE TO MONITOR.
--- NOTE | 2018-09-23 12:30 | NUR ---
SIPPING ON DRINK AND EATING LUNCH WITH NO C/O. VSS. FAMILY AT BEDSIDE, CALL LIGHT WITHIN REACH.
--- NOTE | 2018-09-23 14:30 | NUR ---
RESTING COMFORTABLY WITH NO C/O. NO NEEDS VOICED. VSS. CALL LIGHT WITHIN REACH.
--- NOTE | 2018-09-23 16:56 | NUR ---
1535 INFUSION IS COMPLETE. PT IS ALERT AND DENIES ANY C/O. OUTPUT TOTALS 3500 CC OF URINE. 1605 IV DC'D WITH CATH INTACT. PT DRESSING FOR DC TO HOME, DENIES ANY C/O OR NEEDS AT THIS TIME. 1610 DC INSTRUCTIONS HAVE BEEN REVIEWED WITH PT AND SPOUSE WHO VERBALIZE UNDERSTANDING. PT WEIGHT AT DC IS 104.8 KG. PT ESCORTED TO PRIVATE AUTO VIA WC BY NURSE WITH DRIVING HIM HOME.
== END 2018-09-23 16:10 | disposition home or self-care (01) ==
LOC: D.CATH 06:52
PROVIDERS: ATTEND Internal Medicine Interventional Cardiology
DX: I42.9 Cardiomyopathy, unspecified (principal); Z01.812 Encounter for preprocedural laboratory examination

== ENCOUNTER 2019-04-24 09:28 | Inpatient (IN) | payer MEDICARE ==
[~2019-04-24] VITALS: Ht 185.4 cm; Wt 98.0 kg
--- NOTE | ~2019-04-24 | DS ---
PATIENT:HOME SANTORO :42 MEDICAL RECORD: [id number] DISCHARGE SUMMARY ADMISSION DATE: 04/24/19 DISCHARGE DATE: 04/25/19 DISCHARGE DIAGNOSES: 1. PTCA stent vein graft to RCA. 2. Unstable angina. 3. Cardiomyopathy. 4. Coronary artery disease. 5. Congestive heart failure, chronic systolic dysfunction. HOSPITAL COURSE: Mr. Santoro presents with angina and heart failure symptomatology, found to have critical disease of the vein graft to the RCA, underwent successful PTCA stent of this with the addition of Plavix to his medical regimen. We will restart his Coumadin tonight. Follow up with [facility] in 3 weeks. TRANSINT:[id number] Voice Confirmation ID: [id number] DOCUMENT ID: [id number] DIMITRI ALBERT MD CC: [id number] DICTATION DATE: 04/25/19 1315 CARBON PLANT GRINDER: 04/25/192208 DIS IN 04/25/19 [facility] [address] [place] [id number]
--- NOTE | ~2019-04-24 | HEMODYNAMI ---
PATIENT:HOME SANTORO MEDICAL RECORD: [id number] : 42 [id number] ADMISSION DATE: 04/24/19 Generatedon:04/25/201913:23 Patient name: HOME SANTORO Patient #: [id number] SSN: : 1940 Date of study: 04/25/2019 Page: Of Hemodynamic Procedure Report Patient Data Patient Demographics Procedure consent was obtained First Name: HOME Gender: Male Last Name: MAUDE : 1940 [facility] Initial: STARLA Age: 78 year(s) Patient #: [id number] Race: Unknown Additional ID: [id number] Contact details Address: [facility] [address] State: [place] City: [place] Zip code: [address] Past Medical History Allergies: No known allergies Admission Admission Data Admission Date: 04/24/2019 Admission Time: 9:35 Arrival Date: 04/25/2019 Arrival Time: 0:00 Room #: D.2119 [facility] #: [id number] Height (in.): 72.83 BSA: 2.22 (m2) Height (cm.): 185 BMI: 28.63 (kg/m2) Weight (lbs.): 216.05 Weight (kg.): 98 Current Diagnosis Diagnosis Description Unstable angina Lab Results Lab Result Date: 04/25/2019 Lab Result Time: 0:00 Biochemistry Name Units Result Min Max BUN mg/dl 20 --(----)*- 7 18 Creatinine mg/dl 1.3 --(---*)-- 0.6 1.3 eGFR ml/min 57 *-(----)-- 90 120 NONAFRICAN CBC Name Units Result Min Max Hematocrit % 46.9 --(-*--)-- 42 54 Hemoglobin g/dl 14.6 --(-*--)-- 13.5 17.5 Procedure Procedure Types Cath Procedure Diagnostic Procedure LHC LHC w/Coronaries w/Grafts Sedation Charges Moderate Sedation up to 15 minutes PCI Procedure AMI/SVG/GAS TORCH SOLDERER PTCA or Stent SVG-BMS/JELENA Initial Hemochron ACT Test Procedure Description Procedure Date Procedure Date: 04/25/2019 Procedure Start Time: 13:02 Procedure End Time: 13:22 Procedure Staff Name Function Eladio Doran MD Performing Physician Janey Braswell RN Nurse Karie Cameron RN Monitor Jewels Norris RT Scrub Kenya Gerardo RT Engineering Scientist Procedure Data Cath Procedure Fluoroscopy Diagnostic fluoroscopy Total fluoroscopy Time: 2.8 time: 2.8 min min Diagnostic fluoroscopy Total fluoroscopy dose: 755 dose: 755 mGy mGy Contrast Material Contrast Material Type Amount (ml) Isovue 300 66 Entry Location Entry Primary Successful Side Size Upsize Upsize Entry Closure Succes sful Closure Location (Fr) 1 (Fr) 2 (Fr) Remarks Device Remarks Femoral Right 5 Fr Exoseal artery Estimated blood loss: 10 ml Diagnostic catheters Device Type Used For End Catheter Placement MULTIPACK JL 4.0 5Fr Procedure catheter MULTIPACK 3DRC 5Fr Procedure catheter DIAGNOSTIC AR MOD 5Fr Procedure Catheter ([id number]) Procedure Complications No complications Procedure Medications Medication Administration Route Dosage Oxygen etCO2 Nasal cannula 2 l/min Lidocaine 2% added to field 20 Heparin Flush Bag added to field 2 bags (1000units/500ml NS) 0.9% NaCl I.V. 50 ml/hr unlisted medication I.V. drip 125 ml/hr Versed I.V. 1 mg Fentanyl I.V. 50 mcg Versed I.V. 1 mg Heparin Bolus I.V. 4000 units Integrilin (Bolus I.V. 9 ml 2mg/ml) Plavix P.O. 600 mg Hemodynamics Rest BSA: 2.22 (m2) HGB: 14.6 (g/dl) O2 Consumption: Estimated: 253.13 (ml/min) O2 Co nsumption indexed: Estimated:114.02 (ml/min/m) Heart Rate: 68 (bpm) Snapshots Pre Cath Intra NCS Post Cath Vital Signs Time Heart Resp SPO2 etCO2 NIBP Rhythm Pain Sedation Rate (ipm) (%) (mmHg) (mmHg) Status Level (bpm) 12:54:05 60 18 95 3 122/73(99) NSR 0 (11) 10(A) , No pain 12:58:17 59 21 96 15.8 117/70(85) NSR 0 (11) 10(A) , No pain 13:02:31 59 19 97 22.6 115/71(93) NSR 0 (11) 9(A) , No pain 13:06:45 65 18 95 21.9 110/68(89) NSR 0 (11) 9(A) , No pain 13:10:48 65 12 95 10.5 110/72(97) NSR 0 (11) 9(A) , No pain 13:14:54 66 13 97 20.4 109/75(90) NSR 0 (11) 10(A) , No pain Medications Time Medication Route Dose Verified Delivered Reason Notes Effectiveness by by 12:54:28 Oxygen etCO2 2 Eladio Sifuentesie used for Nasal l/min Andreea Braswell RN procedure cannula 12:54:34 Lidocaine 2% added 20ml Eladio Hendricks for local to vial Andreea Doran MD anesthetic field 12:54:42 Heparin Flush added 2 Eladio Eladio used for Bag to bags Andreea Doran MD procedure (1000units/500ml field NS) 12:54:52 0.9% NaCl I.V. 50 Eladio Buffie Per physician ml/hr Andreea Braswell RN 12:54:57 FFP I.V. 125 Eladio Buffie Per physician via a jett drip ml/hr Andreea Braswell RN pump cont from the med floor, second iv access started for procedure. 12:57:31 Versed I.V. 1 mg Eladio Sifuentesie for sedation Andreea Braswell RN 12:57:41 Fentanyl I.V. 50 Eladio Sifuentesie for sedation mcg Andreea Braswell RN 13:03:17 Versed I.V. 1 mg Eladio Sifuentesie for sedation Andreea Braswell RN 13:09:49 Heparin Bolus I.V. 4000 Eladio Sifuentesie for verif ied units Andreea Braswell RN anticoagulation with dr doran 13:09:56 Integrilin I.V. 9 ml Eladio Sifuentesie for waste d 1 (Bolus 2mg/ml) Andreea Braswell RN antiplatelet ml of vial therapy 13:20:37 Plavix P.O. 600 Eladio Toth for mg Andreea Braswell RN antiplatelet therapy Procedure Log Time Note 12:09:18 Informed consent obtained and on chart 12:17:38 Patient allergic to No known allergies 12:18:24 Lab Result : BUN 20 mg/dl 12:18:24 Lab Result : Creatinine 1.3 mg/dl 12:18:24 Lab Result : Hemoglobin 14.6 g/dl 12:18:24 Lab Result : eGFR NONAFRICAN 57 ml/min 12:18:24 Lab Result : Hematocrit 46.9 % 12:20:11 Patient Weight : 216.05 lbs 12:20:13 Patient Height : 72.83 inches 12::23 Procedure Status Urgent Heart Cath (IP). 12::27 Time tracking: Regular hours (M-F 7:00 - 5:00) 12:23:32 Plan of Care:Hemodynamics will remain stable., Cardiac rhythm will remain stable., Comfort level will be maintained., Respiratory function will remain adequate., Patient/ family verbilizes understanding of procedure., Procedure tolerated without complication., Recovers from procedure without complications.. 12:24:11 Kenya Gerardo RT(R) sent for patient. Start room use. 12:29:50 Arrival Date: 04/25/2019 12:00:00 AM 12:33:26 Patient received from Med II to CCL 1 Alert and oriented. Tansferred to table in Supine position. 12:33:29 Warm blankets applied, and evelio hugger turned on for patient comfort. 12:33:30 Correct patient and procedure confirmed by team. 12:33:31 ECG and BP/O2 sat monitors applied to patient. 12:35:12 Full Disclosure recording started 12:35:16 H&P Date Dictated: 04/25/2019 Within 30 days and on chart.. 12:35:19 Pre-procedure instructions explained to patient. 12:35:19 Pre-op teaching completed and patient verbalized understanding. 12:35:21 Family in patients room. 12:35:23 Patient NPO since Midnight. 12:35:26 Is the patient allergic to Iodine/contrast media? No. 12:35:29 Was the patient premedicated? N/A 12:35:30 Is patient on blood thinner?Yes 12:35:38 ACC The patient was administered the following blood thiners within the last 24 hours: None 12:35:42 Patient diabetic? No. 12:35:44 If diabetic: On Metformin? N/A 12:35:50 Previous problem with sedation/anesthesia? No ? 12:35:52 Snore? Yes 12:35:53 Sleep apnea? No 12:35:55 Deviated septum? No 12:35:56 Opens mouth fully? Yes 12:35:57 Sticks out tongue? Yes 12:36:04 Airway obstruction? Yes COPD 12:36:10 Dentures? Yes TOP OUT 12:39:39 Pre procedure: right dorsailis pedis pulse 1+ Palpable, but thready & weak; easily obliterated 12:39:42 Patient pain scale 0/10 ?. 12:39:54 IV patent on arrival in left hand with 0.9% NaCl at KVO. 12:40:10 Stress Test: no; N/A ? 12:40:32 Current Diagnosis : Unstable angina 12:43:28 Risk of Mortality: 1.3 12:43:31 Risk of blood transfusion: 0.1 12:43:35 Risk of GERONIMO: 2.9 12:43:42 Alarms reviewed by R. N. 12:43:43 Sharps counted by scrub and verified by R.N. 12:45:35 IV started by Janey Braswell RN inright hand with a 24 gauge IV catheter with 0.9% NaCl at KVO. 12:52:55 Baseline sample Acquired. 12:52:58 Vital chart was started 12:53:02 Rhythm: paced 12:53:32 Use device set Femoral Dx 12:53:33 ACIST Syringe (86779) opened to sterile field. 12:53:34 Bag Decanter (2001S) opened to sterile field. 12:53:35 Medline Cath Pack ([id number]) opened to sterile field. 12:53:36 ACIST Hand Control (93970) opened to sterile field. 12:53:37 ACIST Manifold (48761) opened to sterile field. 12:53:48 DIAGNOSTIC Multipack 5Fr catheter set (WV5364) opened to sterile field. 12:54:11 Tegaderm 4 x 4 (1626W) opened to sterile field. 12:54:13 SHEATH 5FR [place] (QDY497) opened to sterile field. 12:54:14 EMERALD Guide Wire (471-409) opened to sterile field. 12:54:23 --------ALL STOP TIME OUT------ 12:54:24 Final Timeout: patient, procedure, and site verified with staff and physician. All members of the team are in agreement. 12:54:25 Right groin site verified by team. 12:54:28 Oxygen 2 l/min etCO2 Nasal cannula was administered by Janey Braswell RN; used for procedure; Verbal order read back and verified. 12:54:28 Fire Safety Assessment: A--An alcohol-based skin anteseptic being used preoperatively., C--Open oxygen or nitrous oxide is being used., D--An ESU, laser, or fiber-optic light is being used. 12:54:33 Physical assessment completed. ASA score P 3 - A patient with severe systemic disease as per Eladio Doran MD. 12:54:34 Lidocaine 2% 20ml vial added to field was administered by Eladio Doran MD; for local anesthetic; Verbal order read back and verified. 12:54:38 3a) 45-59 Moderately reduced kidney function. 12:54:41 Maximum allowable contrast dose (3.7 X eGFR X 0.75)158 ml. 12:54:42 Heparin Flush Bag (1000units/500ml NS) 2 bags added to field was administered by Eladio Doran MD; used for procedure; Verbal order read back and verified. 12:54:45 Sedation plan: IV Moderate Sedation Medication:Versed, Fentanyl 12:54:52 0.9% NaCl 50 ml/hr I.V. was administered by Janey Braswell RN; Per physician; Verbal order read back and verified. 12:54:57 FFP 125 ml/hr I.V. drip was administered by Janey Braswell RN; Per physician; via alaris pump cont from the [facility] floor, second iv access started for procedure. Verbal order read back and verified. 12:57:31 Versed 1 mg I.V. was administered by Janey Braswell RN; for sedation; Verbal order read back and verified. 12:57:41 Fentanyl 50 mcg I.V. was administered by Janey Braswell RN; for sedation; Verbal order read back and verified. 13:01:32 Procedure started. 13:02:54 Local anesthetic to right femoral artery with Lidocaine 2% by Eladio Doran MD.INITIAL ACCESS ONLY 13:03:04 A 5 Fr sheath was inserted into the Right Femoral artery 13:03:17 Versed 1 mg I.V. was administered by Janey Braswell RN; for sedation; Verbal order read back and verified. 13:03:34 A MULTIPACK JL 4.0 5Fr catheter was advanced over the wire and used for Procedure. 13:03:46 LCA angiography performed. 13:04:07 NO LV TAKEN D/T MECHANICAL VALVE 13:04:40 Catheter removed. 13:05:29 A MULTIPACK 3DRC 5Fr catheter was advanced over the wire and used for Procedure. 13:05:42 ACCDominant side:Co-Dominant 13:05:57 EASTMAN to LAD angiography performed. 13:06:37 Catheter removed. 13:06:49 A DIAGNOSTIC AR MOD 5Fr Catheter ([id number]) was advanced over the wire and used for Procedure. 13:07:00 SVG to RCA angiography performed. 13:08:05 Catheter removed. 13:08:08 Proceeding to intervention. 13:08:56 Pre PCI Site: Vein Graft RCA has 90% stenosis. 13:09:07 INFLATOR Merit BasixCompak (DT6583) opened to sterile field. 13:09:07 CHOICE PT Extra Support 182cm wire ([id number]) opened to sterile field. 13:09:46 GUIDE 5FR AR2.0 catheter (LF5MJ33) opened to sterile field. 13:09:49 Heparin Bolus 4000 units I.V. was administered by Janey Braswell RN; for anticoagulation; verified with dr doran Verbal order read back and verified. 13:09:56 Integrilin (Bolus 2mg/ml) 9 ml I.V. was administered by Janey Braswell RN; for antiplatelet therapy; wasted 1 ml of vial Verbal order read back and verified. 13:10:08 5 Fr AR 2 GUIDE guide catheter was inserted over the wire 13:10:15 ACC Pre-intervention ABIGAIL Flow is 2. 13:10:43 CHOICE PT ES wire advanced. 13:10:45 Wire advanced across lesion. 13:12:09 Place stent Inflation Number: 1 A COBRA RX 4.0 X 18 Stent was prepped and advanced across the Aorta Right -> Mid RCA . The stent was deployed at 17 ЕЛЕНА for 0:00 (min:sec) . 13:12:14 EXOSEAL 5Fr (EX500) opened to sterile field. 13:12:27 Stent catheter was removed intact over wire. 13:12:39 Wire removed. 13:12:39 Guide catheter removed. 13:12:44 ACC Post-intervention ABIGAIL Flow is 3. 13:12:57 Sheath removed intact; hemostasis achieved with Exoseal to the Right Femoral artery. 13:13:00 Procedure ended.(Physican Out) 13:13:10 Fluoroscopy time 02.80 minutes. 13:13:13 Flurop Dose total: 755 13:13:13 Fluoroscopy dose: 755 mGy 13:13:18 Dose Area Product 17311 mGy/cm. 13:13:25 Contrast amount:Isovue 300 66ml. 13:13:27 Maximum allowable dose exceeded? No. 13:13:28 Sharps counted by scrub and verified by R.N. 13:13:30 Insertion/operative site no bleeding no hematoma. 13:13:34 Post-op/insertion site Right Femoral artery dressed using a 4 x 4 and Tegaderm. 13:13:39 Post right femoral artery:stable, soft, clean and dry 13:13:41 Post Procedure Pulses reassessed and unchanged 13:13:44 Post procedure: right dorsailis pedis pulse 1+ Palpable, but thready & weak; easily obliterated. 13:13:48 Post-procedure physical assessment completed. ASA score P 3 - A patient with severe systemic disease as per Eladio Doran MD. 13:13:50 Post procedure rhythm: unchanged. 13:13:54 Estimated blood loss: 10 ml 13:13:55 Post procedure instruction explained to patient.Patient verbalizes understanding. 13:13:56 Patient needs reinforcement of post procedure teaching. 13:16:07 Procedure type changed to Cath procedure, Diagnostic procedure, LHC, LHC w/Coronaries w/Grafts, Sedation Charges, Moderate Sedation up to 15 minutes, PCI procedure, AMI/SVG/GAS TORCH SOLDERER PTCA or Stent, SVG-BMS/JELENA Initial, Hemochron ACT Test 13:17:32 ACT drawn and resulted at 319 seconds. (normal therapeutic range 180-240 seconds). 13:17:46 Procedure and supply charges have been captured, reviewed, submitted and are correct. 13:17:50 Procedure Complication : No complications 13:17:54 Vital chart was stopped 13:20:37 Plavix 600 mg P.O. was administered by Janey Braswell RN; for antiplatelet therapy; Verbal order read back and verified. 13:22:35 [facility] Findings: MVD- PCI performed (see procedure note) 13:22:36 Operative report dictated upon procedure completion. 13:22:37 See physician's report for complete and final results. 13:22:39 Report given to [facility]. 13:22:42 Patient transfered to [facility] with Bed. 13:22:44 Procedure ended. 13:22:44 Full Disclosure recording stopped 13:22:50 ACC-PCI Only Patient was given prescriptions, or instructed by Eladio Doran MD to start/continue the following medications upon discharge: Plavix 13:22:54 End room use (Document Last) 13:23:05 End room use (Document Last) 13:23:24 End room use (Document Last) Intervention Summary Intervention Notes Time ActionType Lesion and Equipment Action# Pressure Duration Attributes Used 13:12:09 Place stent Aorta Right COBRA RX 1 17 00:00 -> Mid RCA 4.0 X 18 Stent Device Usage Item Name Manufacture Quantity Catalog Number Hospital Part Current Minimal Lot# / Charge Number Stock Stock Serial# Code ACIST Syringe Acist 1 36068 137401 644372 [id number] 20 (81247) Medical Systems Inc Bag Decanter Microtek 1 2002S 576814 89359 879117 5 (2001S) Medical Inc. Medline Cath Medline 1 [id number] 098325 54954 995265 5 Pack ([id number]) ACIST Hand Acist 1 66394 960493 575907 791019 5 Control Medical (75058) Systems Inc ACIST Manifold Acist 1 32205 235425 903953 313690 5 (01191) Medical Systems Inc DIAGNOSTIC Cardinal 1 [id number] 368260 49831 492156 30 Multipack 5Fr Health catheter set (LO4816) Tegaderm 4 x 4 3M 1 1626W 290669 046201 057336 5 (1626W) SHEATH 5FR Terumo 1 WNY758 713446 811738 853822 5 [place] (PGQ133) EMERALD Guide Cardinal 1 502-455 304234 574089 417655 5 Wire (930-328) Health MULTIPACK JL Cardinal 1 338766 5 4.0 5Fr Health catheter MULTIPACK 3DRC Cardinal 1 725150 5 5Fr catheter Health DIAGNOSTIC AR Cardinal 1 [id number] 218330 705005 546391 15 MOD 5Fr Health Catheter (810934L) INFLATOR Merit Merit 1 KP2725 888782 943709 091463 15 [facility] Medical (OH5321) CHOICE PT [place] 1 [id number] 719511 765247 067386 5 Extra Support Scientific 182cm wire ([id number]) GUIDE 5FR Medtronic 1 [id number] 744697 315553 477371 1 AR2.0 catheter (AM3MR37) COBRA RX 4.0 X Celonova 1 584-44-38523 616707 [id number] 364379 2 [id number] 18 stent Biosciences ([id number]) EXOSEAL 5Fr Cardinal 1 EX500 729757 778234 265437 10 (EX500) Health Signature Audit [place] Stage Time Signature Unsigned Intra-Procedure 04/25/2019 Karie Cameron 1:23:05 PM RN Intra-Procedure 04/25/2019 Janey Braswell RN 1:23:24 PM Intra-Procedure 04/25/2019 Eladio Doran 1:23:52 PM [facility] [address] [place] [address]
--- NOTE | ~2019-04-24 | OP ---
PATIENT NAME: HOME SANTORO MEDICAL RECORD: [id number] :42 LOCATION:D.M2 D.2119 ADMISSION DATE:04/24/19 SURGEON: DIMITRI ALBERT MD DATE OF OPERATION: 04/25/2019 DATE OF SERVICE: 04/25/2019 PROCEDURES: 1. PTCA stent vein graft to RCA. 2. Left heart catheterization. 3. Selective coronary angiography. 4. Left ventriculogram. 5. Vein graft angiography. 6. EASTMAN angiography. INDICATION: Angina and coronary artery disease. PROCEDURE IN DETAIL: After informed consent was obtained and after a detailed explanation of risks, benefits as well as alternative therapies, the patient elected to proceed with angiogram and angioplasty. The right femoral area was prepped and draped in normal sterile fashion. Right femoral artery was cannulated via Seldinger technique with placement of 6-English sheath. All catheters exchanged through this sheath. FINDINGS: Left ventriculogram was not performed secondary to artificial aortic valve. SELECTIVE CORONARY ANGIOGRAPHY: 1. Left main is with no significant angiographic disease. 2. Left circumflex is with no significant angiographic disease. 3. Left anterior descending is totally occluded. 4. EASTMAN to the LAD is widely patent. 5. Right coronary is totally occluded. 6. Vein graft to the RCA is patent with a 90% to 95% stenosis in the mid vessel. PTCA STENT OF THE RCA VEIN GRAFT: The stent used was a 4.0 x 18 mm Cobra stent. Result was 0% residual stenosis. OVERALL IMPRESSION: Successful percutaneous transluminal coronary angioplasty stent of the vein graft to the right coronary artery going from 95% initial stenosis to 0% residual. TRANSINT:[id number] Voice Confirmation ID: [id number] DOCUMENT ID: [id number] DIMITRI ALBERT MD CC: [id number] DICTATION DATE: 04/25/19 1317 FISH HATCHERY WORKER: 04/25/19 1524 ADM IN [place] [id number] [place] [address]
[~2019-04-24 09:28] MED LIST changes: +OMNICEF300 MG PO
--- NOTE | 2019-04-24 10:04 | NUR ---
PATIENT ARRIVED TO THE FLOOR. HE IS A DIRECT ADMIT AND CAME FROM HIS HOUSE. FAMILY AT BEDSIDE. PATIENT REPORTS THAT HE IS GOING TO HAVE SOME FLUID PULLED OFF WITH A MEDICATION TODAY, AND TOMORROW HE WILL HAVE AN ANGIOGRAM. FOLLOWING ORDERS AND PLAN OF CARE.
[2019-04-24] MEDS ORDERED: MINOCIN50 MG PO (10:17)
--- NOTE | 2019-04-24 12:16 | NUR ---
22 G IN LEFT FA. PATIENT TOLERATED.
[2019-04-24 12:19] LABS: BASOPHILS 0.3 % (0-2); EOSINOPHILS 1.7 % (0-7); HEMATOCRIT 46.9 % (42.0-54.0); HEMOGLOBIN 14.6 g/dL (13.5-17.5); LYMPHOCYTES 19.8 % (15-50); MCH 31.5 pg (26.0-34.0); MCHC 31.1 g/dL (31.0-37.0); MCV 101.1 fL (80.0-100.0); MEAN PLATELET VOLUME 12.3 fL (7.4-10.4); NEUTROPHILS 68.2 % (40-80); PLATELET COUNT 150 10x3/uL (130-400); RBC 4.64 10x6/uL (4.20-6.10); RDW 14.6 % (11.5-14.5); WBC 6.4 10x3/uL (4.8-10.8)
[2019-04-24 12:25] LABS: INR 1.85 (0.85-1.17); PROTIME 21.1 SECONDS (11.6-15.0)
[2019-04-24 12:32] VITALS: BP 97/61; BMI 28.5
[2019-04-24 12:34] LABS: ANION GAP 8.2 mmol/L (8-16); CALCIUM 8.7 mg/dL (8.5-10.1); CARBON DIOXIDE 36.7 mmol/L (21.0-32.0); CHOL - HDL RATIO 3.2 ratio (2.3-4.9); CREATININE - SERUM 1.3 mg/dL (0.6-1.3); LDL-HDL RATIO 1.6 ratio (1.5-3.5); POTASSIUM - SERUM 3.9 mmol/L (3.5-5.1)
[2019-04-24 12:49] LABS: CKMB 1.9 U/L (0.0-3.6); CREATINE KINASE 57 UL (21-232); TROPONIN-I 0.028 ng/mL (0.000-0.060)
--- NOTE | 2019-04-24 13:40 | NUR ---
EKG COMPLETE. MEDICATIONS GIVEN ORDERED. PATIENT IS RESTING ON HIS BACK IN BED AT THIS TIME. AT BEDSIDE.
[2019-04-24 13:45] VITALS: BP 97/61
[2019-04-24 13:47] VITALS: BP 97/61
--- NOTE | 2019-04-24 14:39 | NUR ---
PATIENT IS RESTING QUIETLY AND DENIES ANY NEEDS AT THIS TIME. AT BEDSIDE. IS MEASURING HIS URINE AND HELPING HIM WITH THE URINAL. PATIENT HAS BEEN RESTING AND CLOSING HIS EYES .
[2019-04-24 16:45] LABS: CKMB 1.4 U/L (0.0-3.6); CREATINE KINASE 43 UL (21-232); TROPONIN-I 0.025 ng/mL (0.000-0.060)
[2019-04-24 17:53] VITALS: BP 114/69
--- NOTE | 2019-04-24 19:15 | NUR ---
ALERT AND OX4 IN BED UNDERSTANDS AM PROCEDURE GTT AT 14.9 LCTA AND PT SAVING URINE
[2019-04-24 20:00] VITALS: BP 105/42
[2019-04-24 22:35] LABS: CKMB 1.3 U/L (0.0-3.6); CREATINE KINASE 35 UL (21-232); TROPONIN-I 0.023 ng/mL (0.000-0.060)
[2019-04-25] VITALS: BP 113/62
[2019-04-25 04:00] VITALS: BP 100/60
--- NOTE | 2019-04-25 07:10 | NUR ---
REPORT RECEIVD FROM POURER CRANE LADLE AND PATIENT CARE ASSUMED. PATIENT LAYING IN BED AWAKW, ALERT AND ORIENTED X 4.PATIENT DENEIS ANY NEEDS OR PAIN. WILL CONTINUE WITH PLAN OF CARE. SR UP X 2 BED IN LOW POSITION AND CALL LIGHT IN REACH.
[2019-04-25 10:12] VITALS: Ht 185.4 cm; Wt 98.0 kg
[2019-04-25 10:19] VITALS: BP 113/63
--- NOTE | 2019-04-25 12:30 | NUR ---
PATIENT IS STABLE AND VSS. PATIENT DENIES ANY NEEDS OR PAIN. PATIENT TO VOLUNTEER SERVICES MANAGER VIA STRETCHER ACCOMPANIED BY VOLUNTEER SERVICES MANAGER TEAM MEMBERS.
[2019-04-25 12:59] VITALS: BP 122/72
--- NOTE | 2019-04-25 14:55 | MORECARE ---
CASE MANAGEMENT DISCHARGE SUMMARY PATIENT: HOME SANTORO UNIT: [id number] ADM DATE: 04/24/19 AGE: 78 : 41 SEX: M ROOM/BED: D.2119 AUTHOR: CARMINE PENALOZA PHYSICIAN: REFERRING PHYSICIAN: DIMITRI ALBERT MD DATE OF SERVICE: 04/25/19 Discharge Plan Patient Name: HOME SANTORO Facility: [facility]:[place] : 1940 Planned Disposition: Home Anticipated Discharge Date: 04/25/19 Discharge Date: Expected LOS: 1 Initial Reviewer: [email or web address] Initial Review Date: 04/25/2019 Generated: 04/25/19 3:54 pm Patient Name: HOME SANTORO Page 19427 at 1455 All edits/amendments must be made on the electronic document DICTATION DATE: 04/25/19 1454 HOSPITAL TRAY SERVICE WORKER: CAREY 04/25/19 1454 RPT#: [id number] DC DATE: STATUS: ADM IN [facility] [address] [place] [address] END OF REPORT
[2019-04-25] MEDS ORDERED: BAYER CHEWABLE81 MG PO (14:58)
--- NOTE | 2019-04-25 15:03 | MORECARE ---
CASE MANAGEMENT DISCHARGE SUMMARY PATIENT: HOME SANTORO UNIT: [id number] ADM DATE: 04/24/19 AGE: 78 : 41 SEX: M ROOM/BED: D.3350 AUTHOR: TREMAINE,DOC PHYSICIAN: REFERRING PHYSICIAN: DIMITRI ALBERT MD DATE OF SERVICE: 04/25/19 Discharge Plan Patient Name: HOME SANTORO Facility: [facility] : 1940 Planned Disposition: Home Anticipated Discharge Date: 04/25/19 Discharge Date: Expected LOS: 1 Initial Reviewer: [email or web address] Initial Review Date: 04/25/2019 Generated: 04/25/19 4:03 pm Comments DCP- Discharge Planning Updated by [email or web address]: Judson Bang on 04/25/19 1:[address] Patient Name: HOME SANTORO Admission Status: Elective Accout number: [id number] Admission Date: 04-24-2019 : 1940 Admission Diagnosis: Attending: FAYE ALBERT Current LOS: 1 Anticipated DC Date: 04-25-2019 Planned Disposition: Home Primary Insurance: MEDICARE A & B Discharge Planning Comments: CM MET WITH PT IN ROOM TO DISCUSS DISCHARGE PLANNING AND NEEDS. HOME SANTORO provided verbal consent to discuss current and ongoing needs with/in the presence of: SPOUSE, ABELARDO. PT REPORTS LIVING AT HOME INDEPENDENTLY WITH SPOUSE. PT HAS CRUTCHES, HOME AND PORTABLE OXYGEN, NEBULIZER, WALKER AND WHEELCHAIR FROM [facility] PATIENT. PT HAS NO OUTSIDE SERVICES ASSISTING IN THE HOME. CM DISCUSSED AVAILABILITY OF HOME HEALTH, REHAB SERVICES AND MEDICAL EQUIPMENT. PT DENIES DISCHARGE NEEDS, REPORTS HIS WILL PICK HIM UP FOR DISCHARGE HOME. Transformer Maker: Judson Bang DCPIA - Discharge Planning Initial Assessment Updated by [email or web address]: Judson Bang on 04/25/19 2:55 pm * Is the patient Alert and Oriented? Yes * How many steps to enter\exit or inside your home? NONE * PCP DR. GODFREY * Pharmacy [facility] * Preadmission Environment Home with Family * ADLs Independent * Equipment Crutch Nebulizer Oxygen Walker Wheelchair * Other Equipment HOME AND PORTABLE OXYGEN [facility] * List name and contact numbers for known caregivers / representatives who currently or will assist patient after discharge: ABELARDO SANTORO, SPOUSE, * Verbal permission to speak to the caregivers and representatives has been obtained from the patient. Yes * Community resources currently utilized None * Please name any agencies selected above. NONE * Additional services required to return to the preadmission environment? No * Can the patient safely return to the preadmission environment? Yes * Has this patient been hospitalized within the prior 30 days at any hospital? No Last DP export: 04/25/19 1:55 p Patient Name: HOME SANTORO Page [phone] at 1503 All edits/amendments must be made on the electronic document DICTATION DATE: 04/25/19 150 BATTERY CONTAINER TESTER ALUMINUM: CAREY 04/25/191502 RPT#: [id number] DC DATE: STATUS: ADM IN [facility] [address] [place] [address] END OF REPORT
[2019-04-25] MEDS ORDERED: PLAVIX75 MG PO (15:04)
== END 2019-04-25 18:41 | disposition home or self-care (01) | DRG 249 ==
LOC: D.SDCHOLD 09:28 → D.M2 09:35
PROVIDERS: ADMIT Internal Medicine Interventional Cardiology; ATTEND Internal Medicine Interventional Cardiology
PROC: B2111ZZ Fluoroscopy of Multiple Coronary Arteries using Low Osmolar Contrast (ICD-10-PCS; 2019-04-25)
PROC: B2181ZZ Fluoroscopy of Left Internal Mammary Bypass Graft using Low Osmolar Contrast (ICD-10-PCS; 2019-04-25)
PROC: 02703DZ Dilation of Coronary Artery, One Artery with Intraluminal Device, Percutaneous Approach (ICD-10-PCS; principal; 2019-04-25 12:24)
PROC: 4A023N7 Measurement of Cardiac Sampling and Pressure, Left Heart, Percutaneous Approach (ICD-10-PCS; 2019-04-25 12:24)
DX: I25.110 Atherosclerotic heart disease of native coronary artery with unstable angina pectoris (principal); I50.22 Chronic systolic (congestive) heart failure; I42.9 Cardiomyopathy, unspecified; I11.0 Hypertensive heart disease with heart failure

== ENCOUNTER 2019-06-06 06:29 | Outpatient (CLI) | payer MEDICARE ==
[~2019-06-06] VITALS: Ht 185.4 cm; Wt 97.9 kg
[2019-06-06] VITALS (20 sets, daily range): BP systolic 93–122; BP diastolic 49–76; Ht 185.4 cm; Wt 97.9 kg
[~2019-06-06 06:29] MED LIST changes: +MINOCIN50 MG PO
--- NOTE | 2019-06-06 06:40 | NUR ---
PT ARRIVED BY WHEELCHAIR. ASSISTED INTO BED. PLACED ON MONITORS AND ASSESSMENT COMPLETED. ORIENTED TO ROOM. 2 URINALS AT BEDSIDE.
--- NOTE | 2019-06-06 06:45 | NUR ---
PT STATED THAT HE HAS BEEN PUTTING CREAM TO HIS BUTTOCK FOR A REDDENED AREA OR RASH HE CALLED IT. PILLOWS PROPPED UNDER LEFT BUTTOCK FOR PT COMFORT. HE REPORTS THAT THIS IS COMFORTABLE.
--- NOTE | 2019-06-06 07:00 | NUR ---
22G PIV STARTED TO LEFT FA X 1 STICK. TOLERATED WELL. LABS SENT DOWN. IV BUMEX AND IV DOBUTAMINE GTT STARTED PER MD ORDERS. BUMEX RUNNING AT 10CC/HR AND DOBUTAMINE GTT RUNNING AT 15CC/HR (5MCG/KG/MIN). PT TOLERATING WELL. NO OTHER NEEDS AT THIS TIME.
[2019-06-06] MEDS ORDERED: COREG6.25 MG PO (07:15)
[2019-06-06] MEDS ORDERED: ENTRESTO 24 MG1 EACH PO (07:16)
[2019-06-06] MEDS ORDERED: BACLOFEN10 MG PO (07:21)
[2019-06-06 07:23] LABS: ALBUMIN 3.7 g/dL (3.4-5.0); ANION GAP 11.4 mmol/L (8-16); BILIRUBIN - TOTAL 1.01 mg/dL (0.2-1.3); CALCIUM 8.6 mg/dL (8.5-10.1); CARBON DIOXIDE 29.1 mmol/L (21.0-32.0); CREATININE - SERUM 1.2 mg/dL (0.6-1.3); POTASSIUM - SERUM 3.5 mmol/L (3.5-5.1); PROTEIN - SERUM 7.4 g/dL (6.4-8.2)
--- NOTE | 2019-06-06 07:54 | NUR ---
LABS REVIEWED AND NO NEED TO NOTIFY PHYSICIAN AT THIS TIME. PT IS HAVING PAIN 8/10 CHRONIC BACK PAIN. HE BROUGHT HIS OWN MEDICATION. HE TOOK A NORCO 10/325 FOR HIS PAIN AT THIS TIME.
--- NOTE | 2019-06-06 08:28 | NUR ---
PT VOICED 575cc OF CLEAR YELLOW URINE. NO OTHER NEEDS AT THIS TIME.
--- NOTE | 2019-06-06 08:45 | NUR ---
PT ATE APPROX 75% ON BREAKFAST TRAY. TOLERATING WELL.
--- NOTE | 2019-06-06 10:36 | NUR ---
PT VOIDED 600ML OF CLEAR YELLOW URINE. TOLERATING GTTS. HR 94 BP 106/70. PT SITTING UP AND WATCHING TELEVISION AT THIS TIME. CALL LIGHT WITHIN REACH.
--- NOTE | 2019-06-06 11:28 | NUR ---
PT VOIDED 650ML OF CLEAR URINE. PT HAS NO DISTRESS NOTED. VITAL SIGNS ARE STABLE AT THIS TIME.
--- NOTE | 2019-06-06 12:49 | NUR ---
PT VOIDED 550 ML OF CLEAR YELLOW URINE. IV SITE C/D/I. NO S/S OF INFILTRATION NOTED. HR 91 V-PACED. PULSE OX 98% ON ROOM AIR.
--- NOTE | 2019-06-06 14:00 | NUR ---
PT RESTING COMFORTABLY. WATCHING TELEVISION. VSS AT THIS TIME. PT'S VITALS CHARTED UNDER [employer] VITAL SIGNS. NO NEEDS AT THIS TIME CALL LIGHT WITHIN REACH. BUMEX AND DOBUTREX GTTS INFUSING PER MD ORDERS TO LEFT FA PIV. NO S/S OF INFILTRATION NOTED.
--- NOTE | 2019-06-06 15:00 | NUR ---
IV GTTS OFF PER MD ORDERS. PT TOLERATED WELL. BP AND HR STABLE AT THIS TIME. WILL MONITOR.
--- NOTE | 2019-06-06 15:31 | NUR ---
LAST SET OF VITALS CHARTED. PT HAVING NO S/S OF DISTRESS NOTED. WE CALLED HIS AND UPDATED HER ON PICKUP TIME AND LOCATION. PIV D/C'D WITH CATH TIP INTACT. TOLERATED WELL. PT INSTRUCTED TO GET UP AND DRESSED AT THIS TIME. NO ASSISTANCE NEEDED. CALL LIGHT WITHIN REACH.
--- NOTE | 2019-06-06 15:36 | NUR ---
ENDING WEIGHT IS 215.4 LBS.
--- NOTE | 2019-06-06 15:45 | NUR ---
PT TAKEN DOWN TO VEHICLE BY WHEELCHAIR. NO S/S OF DISTRESS NOTED. ALL BELONGINGS AND PAPERWORK IN HAND.
== END 2019-06-06 15:45 | disposition home or self-care (01) ==
LOC: D.CATH 06:29 → D.CLR 06:40 → D.CATH 07:00
PROVIDERS: Internal Medicine Interventional Cardiology; ATTEND Nurse Practitioner
DX: I50.9 Heart failure, unspecified (principal); I42.9 Cardiomyopathy, unspecified

== ENCOUNTER → 2019-07-14 12:32 | Outpatient (CLI) | payer MEDICARE ==
[2019-06-06 07:23] VITALS: BMI 29.0
[~2019-07-14 12:32] MED LIST changes: +BACLOFEN10 MG PO; +COREG6.25 MG PO; +ENTRESTO 24 MG1 EACH PO
[2019-07-14 16:59] LABS: BASOPHILS 0.3 % (0-2); HEMATOCRIT 46.6 % (42.0-54.0); HEMOGLOBIN 14.8 g/dL (13.5-17.5); IMMATURE GRANULOCYTES 0.3 % (0-5); LYMPHOCYTES 17.5 % (15-50); MCH 31.3 pg (26.0-34.0); MCHC 31.8 g/dL (31.0-37.0); MCV 98.5 fL (80.0-100.0); MEAN PLATELET VOLUME 12.6 fL (7.4-10.4); MONOCYTES 9.3 % (2-11); NEUTROPHILS 70.6 % (40-80); PLATELET COUNT 155 10x3/uL (130-400); RBC 4.73 10x6/uL (4.20-6.10); RDW 14.8 % (11.5-14.5)
[2019-07-14 17:15] LABS: ANION GAP 7.4 mmol/L (8-16); CARBON DIOXIDE 34.4 mmol/L (21.0-32.0); CREATININE - SERUM 1.1 mg/dL (0.6-1.3); POTASSIUM - SERUM 3.8 mmol/L (3.5-5.1)
== END | disposition home or self-care (01) ==
LOC: D.LABREF 12:32 → D.RAD 12:32
PROVIDERS: ATTEND Emergency Medicine
DX: M54.2 Cervicalgia (principal); I10 Essential (primary) hypertension; N39.0 Urinary tract infection, site not specified

== ENCOUNTER 2019-08-08 06:54 | Outpatient (CLI) | payer MEDICARE ==
[~2019-08-08] VITALS: Ht 185.4 cm; Wt 98.7 kg
[2019-08-08 08:23] VITALS: Ht 185.4 cm; Wt 98.7 kg
[2019-08-08 09:13] LABS: ANION GAP 7.7 mmol/L (8-16); CARBON DIOXIDE 33.1 mmol/L (21.0-32.0); CREATININE - SERUM 1.1 mg/dL (0.6-1.3); POTASSIUM - SERUM 3.8 mmol/L (3.5-5.1)
--- NOTE | 2019-08-08 14:59 | NUR ---
4602-PAGED DR. BERG TO REPORT DECREASE B/P FROM [phone] TO 81/39.
--- NOTE | 2019-08-08 15:00 | NUR ---
1436-NO RETURN CALL FROM DR. BERG. CALLED MED 2 TO SEE IF CARDIOLOGY ON THEIR UNIT. CARDIOLOGY IS NOT ON MED 2. RECEIVED PAGER OF [phone] FOR DR. PEREZ WHO IS CHARGE NURSE. PAGED THIS NUMBER [phone]
--- NOTE | 2019-08-08 15:02 | NUR ---
1902-NO RETURN CALL FROM PAGER [phone]. CONTACTED [facility] AGAIN. WAS GIVEN ANOTHER PAGER TO CALL [phone] THIS NUMBER FOR [facility].
--- NOTE | 2019-08-08 15:03 | NUR ---
1455-REC'D RETURN PAGE CALL FROM DR. PEREZ. NOTIFIED OF DECREASE IN BLOOD PRESSURE. NEW ORDERS TO DECREASE BUMEX FROM 1MG TO 0.5MG, CONTINUE DRIP FOR THE REMAINING 8 HOURS THEN DISCHARGE HOME.
--- NOTE | 2019-08-08 18:44 | NUR ---
1800 IV REMOVED PT WEIGHT 212LB ON STANDING SCALE.
== END 2019-08-08 18:20 | disposition home or self-care (01) ==
LOC: D.CATH 06:54
PROVIDERS: ATTEND Internal Medicine Cardiovascular Disease
DX: I70.212 Atherosclerosis of native arteries of extremities with intermittent claudication, left leg (principal); Q61.02 Congenital multiple renal cysts

== ENCOUNTER → 2019-09-24 13:40 | Outpatient (CLI) | payer MEDICARE ==
[2019-08-08 08:23] VITALS: BMI 28.7
== END | disposition home or self-care (01) ==
LOC: D.HCCECHO 13:40
PROVIDERS: ATTEND Internal Medicine Cardiovascular Disease
DX: I25.10 Atherosclerotic heart disease of native coronary artery without angina pectoris (principal)

== ENCOUNTER 2019-10-28 06:57 | Day surgery (SDC) | payer MEDICARE ==
[~2019-10-28] VITALS: Ht 185.4 cm; Wt 94.2 kg
--- NOTE | ~2019-10-28 | HEMODYNAMI ---
PATIENT:HOME SANTORO MEDICAL RECORD: [id number] : 42 LOCATION:[facility] ADMISSION DATE: 10/28/19 Generatedon:10/28/20199:10 Patient name: HOME SANTORO Patient #: [id number] SSN: [id number] : 1940 Date of study: 10/28/2019 Page: Of Hemodynamic Procedure Report Patient Data Patient Demographics Procedure consent was obtained First Name: HOME Gender: Male Last Name: MAUDE : 1940 [facility] Initial: STARLA Age: 78 year(s) Patient #: [id number] Race: SSN: [id number] Additional ID: [id number] Contact details Address: [address] State: [place] City: [place] Zip code: [address] Past Medical History Allergies: No known allergies Admission Admission Data Admission Date: 10/28/2019 Admission Time: 6:57 Arrival Date: 10/28/2019 Arrival Time: 0:00 Admit Source: Other Insurance Payor: Medicare, Medicaid [facility] #: [id number] Height (in.): 73 BSA: 2.21 (m2) Height (cm.): 185.42 BMI: 27.97 (kg/m2) Weight (lbs.): 212 Weight (kg.): 96.16 Lab Results Lab Result Date: 10/28/2019 Lab Result Time: 0:00 Biochemistry Name Units Result Min Max BUN mg/dl 18 --(---*)-- 7 18 Creatinine mg/dl 1.3 --(---*)-- 0.6 1.3 eGFR ml/min 57 *-(----)-- 90 120 NONAFRICAN CBC Name Units Result Min Max Hematocrit % 44.4 --(*---)-- 42 54 Hemoglobin g/dl 14.2 --(*---)-- 13.5 17.5 Procedure Procedure Types Cath Procedure Diagnostic Procedure LHC Sedation Charges Moderate Sedation up to 15 minutes Peripheral Cath Diagnostic Procedure 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 Peripheral Procedures AFRO (Diagnostic) Procedure Description Procedure Date Procedure Date: 10/28/2019 Procedure Start Time: 8:49 Procedure End Time: 9:08 Procedure Staff Name Function Janey Braswell RN Nurse Reynold Helm MD Performing Physician Jewels Norris RT Monitor Rosanna Mccall RT Scrub Marti Prieto RN Nurse Indication CAD Procedure Data Cath Procedure Fluoroscopy Diagnostic fluoroscopy Total fluoroscopy Time: 4.4 time: 4.4 min min Diagnostic fluoroscopy Total fluoroscopy dose: 339 dose: 339 mGy mGy Contrast Material Contrast Material Type Amount (ml) Isovue 300 73 Entry Location Entry Primary Successful Side Size Upsize Upsize Entry Closure Succes sful Closure Location (Fr) 1 (Fr) 2 (Fr) Remarks Device Remarks Femoral Right 5 Fr Exoseal artery Estimated blood loss: 5 ml Diagnostic catheters Device Type Used For End Catheter Placement DIAGNOSTIC UF 5Fr Abdominal catheter ([id number]) aortogram with runoff DIAGNOSTIC IM 5Fr Procedure catheter ([id number]) Procedure Complications No complications Procedure Medications Medication Administration Route Dosage Oxygen NC 2 l/min 0.9% NaCl I.V. 100 ml/hr Lidocaine 2% added to field 20 Heparin Flush Bag added to field 2 bags (1000units/500ml NS) Versed I.V. 1 mg Fentanyl I.V. 50 mcg Versed I.V. 0.5 mg Fentanyl I.V. 25 mcg Hemodynamics Rest BSA: 2.21 (m2) HGB: 14.2 (g/dl) O2 Consumption: Estimated: 291.25 (ml/min) O2 Co nsumption indexed: Estimated:131.79 (ml/min/m) Heart Rate: 116 (bpm) Snapshots Pre Cath Intra NCS Post Cath Vital Signs Time Heart Resp SPO2 etCO2 NIBP Rhythm Pain Sedation Rate (ipm) (%) (mmHg) (mmHg) Status Level (bpm) 8:36:10 115 17 98 21 101/73(87) NSR 0 (11) 10(A) , No pain 8:40:19 112 15 100 30.8 102/69(84) NSR 0 (11) 10(A) , No pain 8:44:27 113 16 100 29.3 101/69(78) NSR 0 (11) 10(A) , No pain 8:48:37 114 15 100 38.4 98/67(77) NSR 0 (11) 10(A) , No pain 8:52:45 101 18 99 49.7 104/72(80) NSR 0 (11) 9(A) , No pain 8:56:57 111 19 98 44.4 98/64(76) NSR 0 (11) 9(A) , No pain 9:01:07 110 17 99 52.7 103/63(74) NSR 0 (11) 9(A) , No pain 9:05:16 110 23 100 44.4 94/66(73) NSR 0 (11) 9(A) , No pain Medications Time Medication Route Dose Verified Delivered Reason Notes Effec tiveness by by 8:35:26 Oxygen NC 2 Reynold Marti for low 02 l/min Volodymyr Prieto sats RN 8:35:37 0.9% NaCl I.V. 100 Reynold Marti used for ml/hr Volodymyr Prieto liquor gallery operator 8:35:49 Lidocaine 2% added 20ml Reynold Marti for local to vial Volodymyr Prieto anesthetic field RN 8:35:59 Heparin Flush added 2 Reynold Marti used for Bag to bags Volodymyr Prieto procedure (1000units/500ml field RN NS) 8:48:25 Versed I.V. 1 mg Reynold Marti for Volodymyr Prieto sedation RN 8:48:33 Fentanyl I.V. 50 Reynold Marti for mcg Volodymyr Prieto sedation RN 8:52:26 Versed I.V. 0.5 Reynold Marti for mg Volodymyr Prieto sedation RN 8:52:32 Fentanyl I.V. 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 7:08:56 Time tracking: Regular hours (M-F 7:00 - 5:00) 7:09:01 Plan of Care:Hemodynamics will remain stable., Cardiac rhythm will remain stable., Comfort level will be maintained., Respiratory function will remain adequate., Patient/ family verbilizes understanding of procedure., Procedure tolerated without complication., Recovers from procedure without complications.. 7:09:13 H&P Date Dictated: 10/20/2019 Within 30 days and on chart.. 7:09:23 Patient allergic to No known allergies 7:09:36 Stress Test: no; N/A ? 7:10:07 Patient Height : 73 inches 7:10:13 Patient Weight : 212 lbs 8:09:01 Indication : CAD 8:18:09 Jewels Norris RT(R) (CV) sent for patient. Start room use. 8:24:56 Patient received from Pre/Post Procedure Room to CCL 1 Alert and oriented. Tansferred to table in Supine position. 8:24:59 Warm blankets applied, and evelio hugger turned on for patient comfort. 8:25:00 Correct patient and procedure confirmed by team. 8:25:01 ECG and BP/O2 sat monitors applied to patient. 8:25:03 Pre-procedure instructions explained to patient. 8:25:04 Pre-op teaching completed and patient verbalized understanding. 8:35:03 Vital chart was started 8:35:26 Oxygen 2 l/min NC was administered by Marti Prieto RN; for low 02 sats; Verbal order read back and verified. 8:35:37 0.9% NaCl 100 ml/hr I.V. was administered by Marti Prieto RN; used for procedure; Verbal order read back and verified. 8:35:49 Lidocaine 2% 20ml vial added to field was administered by Marti Prieto RN; for local anesthetic; Verbal order read back and verified. 8:35:59 Heparin Flush Bag (1000units/500ml NS) 2 bags added to field was administered by Marti Prieto RN; used for procedure; Verbal order read back and verified. 8:38:06 Baseline sample Acquired. 8:38:14 Rhythm: sinus tachycardia, paced 8:40:58 Family in patients room. 8:41:00 Patient NPO since Midnight. 8:41:03 Is the patient allergic to Iodine/contrast media? No. 8:41:05 Was the patient premedicated? Yes 8:41:07 Is patient on blood thinner?Yes 8:41:15 ACC The patient was administered the following blood thiners within the last 24 hours: Coumadin 8:41:19 Patient diabetic? No. 8:41:25 ----Pre-sedation anethsthesia assessment.---- 8:41:32 Previous problem with sedation/anesthesia? No ? 8:41:34 Snore? Yes 8:41:36 Sleep apnea? No 8:41:39 Deviated septum? No 8:41:41 Opens mouth fully? Yes 8:41:43 Sticks out tongue? Yes 8:41:48 Airway obstruction? Yes COPD 8:41:54 Dentures? Yes ?INTIGHT. 8:41:59 Pre procedure: right dorsailis pedis pulse Doppler 8:42:59 Patient pain scale 6/10 ALL OVER. 8:43:09 IV patent on arrival in left forearm with 0.9% NaCl at [facility]. 8:44:48 Lab Result : BUN 18 mg/dl 8:44:48 Lab Result : Creatinine 1.3 mg/dl 8:44:48 Lab Result : eGFR NONAFRICAN 57 ml/min 8:44:48 Lab Result : Hemoglobin 14.2 g/dl 8:44:48 Lab Result : Hematocrit 44.4 % 8:44:56 Lab results completed and on chart. 8:45:03 Bilateral groins area was prepped with chlora-prep and draped in sterile fashion 8:45:20 Alarms reviewed by R. N. 8:45:21 Sharps counted by scrub and verified by R.N. 8:45:23 Physician arrived 8:45:24 --------ALL STOP TIME OUT------ 8:45:25 Final Timeout: patient, procedure, and site verified with staff and physician. All members of the team are in agreement. 8:45:32 Bilateral groins site verified by team. 8:45:37 Fire Safety Assessment: A--An alcohol-based skin anteseptic being used preoperatively., C--Open oxygen or nitrous oxide is being used., D--An ESU, laser, or fiber-optic light is being used. 8:45:46 Physical assessment completed. ASA score P 2 - A patient with mild systemic disease as per Reynold Helm MD. 8:45:51 3a) 45-59 Moderately reduced kidney function. 8:45:56 Maximum allowable contrast dose (3.7 X eGFR X 0.75)158 ml. 8:46:02 Sedation plan: IV Moderate Sedation Medication:Versed, Fentanyl 8:47:33 Procedure started. 8:47:33 Full Disclosure recording started 8:47:39 Use device set Femoral Dx 8:47:41 ACIST Syringe (54951) opened to sterile field. 8:47:42 Bag Decanter (2002S) opened to sterile field. 8:47:45 ACIST Hand Control (26783) opened to sterile field. 8:47:46 Medline Cath Pack ([id number]) opened to sterile field. 8:47:49 ACIST Manifold (30686) opened to sterile field. 8:47:51 Tegaderm 4 x 4 (1626W) opened to sterile field. 8:47:52 SHEATH 5FR [place] (CEA668) opened to sterile field. 8:47:53 EMERALD Guide Wire (667-941) opened to sterile field. 8:48:25 Versed 1 mg I.V. was administered by Marti Prieto RN; for sedation; Verbal order read back and verified. 8:48:33 Fentanyl 50 mcg I.V. was administered by Marti Prieto RN; for sedation; Verbal order read back and verified. 8:49:35 Local anesthetic to right femoral artery with Lidocaine 2% by Reynold Helm MD.INITIAL ACCESS ONLY 8:49:44 Zero performed for pressure channel P1 8:51:31 A 5 Fr sheath was inserted into the Right Femoral artery 8:52:10 A DIAGNOSTIC UF 5Fr catheter ([id number]) was advanced over the wire and used for Abdominal aortogram with runoff. 8:52:26 Versed 0.5 mg I.V. was administered by Marti Prieto RN; for sedation; Verbal order read back and verified. 8:52:32 Fentanyl 25 mcg I.V. was administered by Marti Prieto RN; for sedation; Verbal order read back and verified. 8:53:42 Abdominal Aortagram was performed@5FOR 15. 8:54:23 Left leg runoff performed@10 FOR 20. 8:54:53 Right leg runoff performed@10 FOR 20. 8:59:50 Catheter exchanged over wire. 9:00:10 A DIAGNOSTIC IM 5Fr catheter ([id number]) was advanced over the wire and used for Procedure. 9:01:50 EXOSEAL 5Fr (EX500) opened to sterile field. 9:02:01 Catheter removed. 9:02:32 Contrast amount:Isovue 300 73ml. 9:02:36 Maximum allowable dose exceeded? No. 9:03:00 Fluoroscopy time 04.40 minutes. 9:03:05 Flurop Dose total: 339 9:03:05 Fluoroscopy dose: 339 mGy 9:03:14 Dose Area Product 58659 mGy/cm. 9:03:26 Sheath removed intact; hemostasis achieved with Exoseal to the Right Femoral artery. 9:03:30 Procedure ended.(Physican Out) 9:03:32 Sharps counted by scrub and verified by R.N. 9:03:44 Post-op/insertion site Right Femoral artery dressed using a 4 x 4 and Tegaderm. 9:03:51 Post-procedure physical assessment completed. ASA score P 2 - A patient with mild systemic disease as per Reynold Helm MD. 9:03:57 Post procedure rhythm: unchanged. 9:04:01 Estimated blood loss: 5 ml 9:04:04 Post procedure instruction explained to patient.Patient verbalizes understanding. 9:04:05 Patient needs reinforcement of post procedure teaching. 9:08:13 Procedure and supply charges have been captured, reviewed, submitted and are correct. 9:08:21 Procedure Complication : No complications 9:08:25 Vital chart was stopped 9:08:28 AFRO Findings: PVD: mild to moderate (<70%) 9:08:30 See physician's report for complete and final results. 9:08:33 Report given to Pre/Post Procedure Room. 9:08:37 Patient transfered to Pre/Post Procedure Room with Stretcher. 9:08:41 Procedure ended. 9:08:41 Full Disclosure recording stopped 9:08:45 End room use (Document Last) Device Usage Item Name Manufacture Quantity Catalog Hospital Part Current Minimal L ot# / Number Charge Number Stock Stock Serial# Code ACIST Acist 1 22752 209694 382050 359698 20 Syringe Medical (03220) Systems Inc Bag Microtek 1 199850 98057 298933 5 Decanter Medical Inc. () ACIST Hand Acist 1 06672 926888 218278 057780 5 Control Medical (61531) Systems Inc Medline Medline 1 [id number] 285533 97486 613293 5 Cath Pack ([id number]) ACIST Acist 1 64534 676803 070640 703540 5 Manifold Medical (07697) Systems Inc Tegaderm 4 3M 1 1626W 957971 326335 958352 5 x 4 (1626W) SHEATH 5FR Terumo 1 [id number] 708595 239429 587993 5 [place] (OLK241) EMERALD Cardinal 1 502-455 325966 071197 633886 5 Guide Wire Health (502-455) DIAGNOSTIC Cardinal 1 [id number] 433101 190254 714223 10 UF 5Fr Health catheter ([id number]) DIAGNOSTIC Cardinal 1 [id number] 243214 883254 323213 5 IM 5Fr Health catheter (744471Q) EXOSEAL 5Fr Cardinal 1 EX500 912389 712563 374010 10 (EX500) Health Signature Audit Omar Stage Time Signature Unsigned Intra-Procedure 10/28/2019 Jewels 9:09:10 AM Myrna RT(R) (CV) Intra-Procedure 10/28/2019 Marti 9:09:58 AM Ida RN Intra-Procedure 10/28/2019 Reynold Helm MD 9:10:39 AM [id number] [place] [address]
[~2019-10-28 06:57] MED LIST changes: +WARFARIN SODIUM5 MG PO
[2019-10-28] MEDS ORDERED: ZANAFLEX4 MG PO (07:32)
[2019-10-28] MEDS ORDERED: TRELEGY ELLIPT1 EACH INH (07:33)
[2019-10-28] MEDS ORDERED: PLAVIX75 MG PO (07:34)
[2019-10-28] MEDS ORDERED: BETAPACE 120 M120 MG PO (07:38)
[2019-10-28 07:50] VITALS: BP 107/72; Ht 185.4 cm; Wt 94.2 kg
[2019-10-28] MEDS ORDERED: COREG25 MG PO (07:57)
[2019-10-28 07:59] LABS: BASOPHILS 0.4 % (0-2); HEMATOCRIT 44.4 % (42.0-54.0); HEMOGLOBIN 14.2 g/dL (13.5-17.5); IMMATURE GRANULOCYTES 0.2 % (0-5); LYMPHOCYTES 18.1 % (15-50); MCH 31.2 pg (26.0-34.0); MCV 97.6 fL (80.0-100.0); MEAN PLATELET VOLUME 12.1 fL (7.4-10.4); MONOCYTES 9.7 % (2-11); NEUTROPHILS 69.6 % (40-80); PLATELET COUNT 148 10x3/uL (130-400); RBC 4.55 10x6/uL (4.20-6.10); WBC 5.5 10x3/uL (4.8-10.8)
[2019-10-28] MEDS ORDERED: LOVENOX80 MG/0.8 SC (07:59)
[2019-10-28] MEDS ORDERED: ENTRESTO 24 MG1 EACH PO (08:04)
[2019-10-28 08:11] LABS: INR 1.53 (0.85-1.17); PROTIME 18.3 SECONDS (11.6-15.0)
[2019-10-28 08:15] LABS: ANION GAP 9.3 mmol/L (8-16); CARBON DIOXIDE 31.2 mmol/L (21.0-32.0); CHOL - HDL RATIO 2.9 ratio (2.3-4.9); CREATININE - SERUM 1.3 mg/dL (0.6-1.3); LDL-HDL RATIO 1.5 ratio (1.5-3.5); POTASSIUM - SERUM 3.5 mmol/L (3.5-5.1)
--- NOTE | 2019-10-28 09:15 | NUR ---
PT RECEIVED VIA STRETCHER FROM CHIEF SERVICE DISPATCHER FOR RECOVERY. PT DROWSY, BUT VERBALLY AROUSABLE. IV PATENT INFUSING VIA ORDERS TO L ARM. PT PLACED ON CARDIAC MONITORS AND O2 VIA NC AT 2L. HR PACED RATE 114, BP 103/73, RR 12, SAT 97. R GROIN W 5FR EXOCELE, DRESSING CDI NO S/S HEMATOMA OR BLEEDING NOTED. LEG PINK AND WARM, PEDAL PULSES PALPABLE. PT INSTRUCTED TO KEEP HEAD ON PILLOW AND LEG STRAIGHT, HE VERBALIZED UNDERSTANDING. CALL LIGHT IN REACH, AT BEDSIDE.
--- NOTE | 2019-10-28 09:30 | NUR ---
PT SLEEPING COMFORTABLY. VSS AT PRESENT. R GROIN SOFT, DRESSING CDI NO S/S HEMATOMA NOTED. CALL LIGHT IN REACH, AT BS
--- NOTE | 2019-10-28 10:14 | NUR ---
PT SLEEPING, VERBALLY AROUSABLE. GROIN SOFT, DRESSING REMAINS CDI NO S/S HEMATOMA NOTED. HOB ELEVATED SLIGHTLY. PT DENIES PAIN OR NEEDS AT THIS TIME. REMAINS AT BS, CALL LIGHT IN REACH
--- NOTE | 2019-10-28 10:16 | NUR ---
DR BERG AT , DISCUSSED PROCEDURE RESULTS AND PLAN OF CARE. NO NEW ORDERS RECEIVED.
--- NOTE | 2019-10-28 10:44 | NUR ---
PT DOING WELL, GROIN SOFT, NO S/S HEMATOMA. OFFERED SANDWICH PT DECLINES AT THIS TIME. TOLERATING PO FLUIDS. VSS AT PRESENT. REMAINS AT BS, CALL LIGHT IN REACH
--- NOTE | 2019-10-28 11:20 | NUR ---
DISCHARGE INSTRUCTIONS REVIEWED W PT AND , BOTH VERBALIZED UNDERSTANDING. IV REMOVED, MANUAL PRESSURE HELD X 5 MIN TO STOP BLEEDING. COBAN APPLIED FOR PRESSURE. GROIN SOFT, NO S/S HEMATOMA. MONITORS AND O2 REMOVED. PT UP TO DRESS W ASSIST FROM .
--- NOTE | 2019-10-28 11:49 | NUR ---
PT TO BR VIA WC, VOIDING W/O DIFFICULITY. 1155 PT DISCHARGED VIA WC TO WAITING IN PRIVATE VEHICLE. PT HAD ALL BELONGINGS AND DISCHARGE PAPERWORK
== END 2019-10-28 11:55 | disposition home or self-care (01) ==
LOC: D.CATH 06:57
PROVIDERS: ATTEND Internal Medicine Cardiovascular Disease
DX: R93.1 Abnormal findings on diagnostic imaging of heart and coronary circulation (principal); I50.9 Heart failure, unspecified; Z95.0 Presence of cardiac pacemaker; I10 Essential (primary) hypertension; E78.5 Hyperlipidemia, unspecified; I42.9 Cardiomyopathy, unspecified; Z95.810 Presence of automatic (implantable) cardiac defibrillator; I65.29 Occlusion and stenosis of unspecified carotid artery; I73.9 Peripheral vascular disease, unspecified